=== PATIENT | male | born 1955 | race Caucasian/White ===

== ENCOUNTER → 2023-05-23 06:41 | Day surgery (SDC) | payer OTHER, SELFPAY | LOC: GI 06:41 | PROVIDERS: ATTENDING PHYSICIAN Internal Medicine Gastroenterology; FAMILY PHYSICIAN Internal Medicine | DX: Z12.11 Encounter for screening for malignant neoplasm of colon (principal); K57.30 Diverticulosis of large intestine without perforation or abscess without bleeding; K64.8 Other hemorrhoids; K62.1 Rectal polyp; D12.3 Benign neoplasm of transverse colon; D12.5 Benign neoplasm of sigmoid colon; D12.2 Benign neoplasm of ascending colon; Z86.010 Personal history of colon polyps | CPT/HCPCS: 45385; 45380; 88305 ==

== ENCOUNTER → 2023-08-30 07:44 | Outpatient (REF) | payer OTHER, SELFPAY | LOC: WOUND 07:44 | PROVIDERS: ATTENDING PHYSICIAN Surgery; FAMILY PHYSICIAN Internal Medicine | DX: I87.312 Chronic venous hypertension (idiopathic) with ulcer of left lower extremity (principal); L97.822 Non-pressure chronic ulcer of other part of left lower leg with fat layer exposed; I87.2 Venous insufficiency (chronic) (peripheral); I48.19 Other persistent atrial fibrillation; I89.0 Lymphedema, not elsewhere classified; N18.31 Chronic kidney disease, stage 3a; Z79.01 Long term (current) use of anticoagulants | CPT/HCPCS: 99204 ==

== ENCOUNTER → 2023-09-06 07:32 | Outpatient (REF) | payer OTHER, SELFPAY | LOC: WOUND 07:32 | PROVIDERS: ATTENDING PHYSICIAN Surgery; FAMILY PHYSICIAN Internal Medicine | DX: I87.312 Chronic venous hypertension (idiopathic) with ulcer of left lower extremity (principal); L97.822 Non-pressure chronic ulcer of other part of left lower leg with fat layer exposed; I87.2 Venous insufficiency (chronic) (peripheral); I48.19 Other persistent atrial fibrillation; Z79.01 Long term (current) use of anticoagulants | CPT/HCPCS: 99212 ==

== ENCOUNTER → 2023-09-14 10:32 | Outpatient (REF) | payer OTHER, SELFPAY | LOC: WOUND 10:32 | PROVIDERS: ATTENDING PHYSICIAN Surgery; FAMILY PHYSICIAN Internal Medicine | DX: I87.312 Chronic venous hypertension (idiopathic) with ulcer of left lower extremity (principal); L97.822 Non-pressure chronic ulcer of other part of left lower leg with fat layer exposed; I87.2 Venous insufficiency (chronic) (peripheral); I48.19 Other persistent atrial fibrillation; I89.0 Lymphedema, not elsewhere classified; N18.31 Chronic kidney disease, stage 3a; I73.9 Peripheral vascular disease, unspecified; Z79.01 Long term (current) use of anticoagulants | CPT/HCPCS: 99214 ==

== ENCOUNTER → 2023-09-21 13:36 | Outpatient (REF) | payer OTHER, SELFPAY | LOC: WOUND 13:36 | PROVIDERS: ATTENDING PHYSICIAN Surgery; FAMILY PHYSICIAN Internal Medicine | DX: I87.312 Chronic venous hypertension (idiopathic) with ulcer of left lower extremity (principal); L97.822 Non-pressure chronic ulcer of other part of left lower leg with fat layer exposed; I87.2 Venous insufficiency (chronic) (peripheral); I48.19 Other persistent atrial fibrillation; I89.0 Lymphedema, not elsewhere classified; N18.31 Chronic kidney disease, stage 3a; I73.9 Peripheral vascular disease, unspecified; Z79.01 Long term (current) use of anticoagulants | CPT/HCPCS: 99213 ==

== ENCOUNTER → 2023-09-28 13:03 | Outpatient (REF) | payer OTHER, SELFPAY | LOC: WOUND 13:03 | PROVIDERS: ATTENDING PHYSICIAN Surgery; FAMILY PHYSICIAN Internal Medicine | DX: I87.312 Chronic venous hypertension (idiopathic) with ulcer of left lower extremity (principal); L97.822 Non-pressure chronic ulcer of other part of left lower leg with fat layer exposed; I87.2 Venous insufficiency (chronic) (peripheral); I48.19 Other persistent atrial fibrillation; I89.0 Lymphedema, not elsewhere classified; N18.31 Chronic kidney disease, stage 3a; I73.9 Peripheral vascular disease, unspecified; Z79.01 Long term (current) use of anticoagulants | CPT/HCPCS: 11042 ==

== ENCOUNTER 2023-10-10 11:06 | Outpatient (RCR) | payer OTHER, SELFPAY | END 2023-10-10 23:59 | disposition home or self-care (01) | LOC: RPT 11:06 | PROVIDERS: ATTENDING PHYSICIAN Surgery; FAMILY PHYSICIAN Internal Medicine | DX: I89.0 Lymphedema, not elsewhere classified (principal) | CPT/HCPCS: 97163; 97530 ==

== ENCOUNTER → 2023-10-12 13:27 | Outpatient (REF) | payer OTHER, SELFPAY | LOC: WOUND 13:27 | PROVIDERS: ATTENDING PHYSICIAN Surgery; FAMILY PHYSICIAN Internal Medicine | DX: I87.312 Chronic venous hypertension (idiopathic) with ulcer of left lower extremity (principal); L97.822 Non-pressure chronic ulcer of other part of left lower leg with fat layer exposed; I87.2 Venous insufficiency (chronic) (peripheral) | CPT/HCPCS: 11042; 11045 ==

== ENCOUNTER → 2023-10-18 13:53 | Outpatient (REF) | payer OTHER, SELFPAY | LOC: WOUND 13:53 | PROVIDERS: ATTENDING PHYSICIAN Surgery; FAMILY PHYSICIAN Internal Medicine | DX: I87.312 Chronic venous hypertension (idiopathic) with ulcer of left lower extremity (principal); L97.822 Non-pressure chronic ulcer of other part of left lower leg with fat layer exposed; I87.2 Venous insufficiency (chronic) (peripheral); I73.9 Peripheral vascular disease, unspecified | CPT/HCPCS: 99213 ==

== ENCOUNTER 2023-10-18 17:32 | Inpatient (IN) | payer OTHER, SELFPAY ==
[2023-10-18 14:51] VITALS: BP 153/70
[2023-10-18 15:49] VITALS: BMI 36.2
--- NOTE | 2023-10-18 15:56 | ED.GENMED ---
History of Present Illness
General
Chief Complaint: Skin Problem
Source: patient and physician
Time Seen by Provider: 10/18/23 15:27
History of Present Illness
History of Present Illness:
68-year-old male with past medical history of atrial fibrillation, aortic stenosis, chronic lymphedema presenting to the emergency department at request of the [facility] for admission for IV antibiotics due to cellulitis of the left lower
extremity that is not improving with oral doxycycline that patient has been on over the last few days. Patient reports persistent watery and blood-tinged drainage but has been gradually worsening. He denies any fevers/chills or rigors. Notes that
he recently started seeing a lymphedema specialist but is currently not undergoing any specific treatment as he states he is a new patient to their practice. Patient denies any other associated symptoms including significant pain, weakness or
numbness, chest pain or shortness of breath or any other concerns. He denies any history for diabetes.
Past History
Past History
ED Past Medical History: Arrthythmia, Other (Aortic stenosis) and Other (Chronic lymphedema)
ED Past Surgical History: Cardiac and Orthopedic
Social History
Tobacco: Non-smoker
Alcohol: None
Drug: None
Personal:
Living: with family
Employment: Retired
Family History
Family History: Other
Review of Systems
Review of Systems
All Other Systems: ROS reviewed and negative except as documented in HPI and ROS
Phy Exam
Physical Exam
Physical Exam:
GENERAL: Alert , in no apparent distress, overweight
EYE: conjunctiva clear
NECK: Supple, no significant adenopathy.
ENT: o/p clr, mmm.
CARDIAC: Regular rate and rhythm
LUNGS: Clear breath sounds bilaterally, no acute respiratory distress, no wheezes/rales/rhonchi
NEUROLOGICAL: Alert and oriented
SKIN: Warm and dry, left lower extremity: Dressing overlying the distal lower leg. Once dressing was removed it was noted to be somewhat saturated with yellow-tinged serosanguineous drainage. There are multiple superficial abrasions with skin
hyperpigmentation and surrounding erythema. Mildly tender to palpation.
MUSCULOSKELETAL: significant bilateral lower extremity edema
PSYCH: Normal and appropriate interaction.
Scores
Heart Failure Risk
Heart Failure Risk Score: Not Applicable
Heart Score for Chest Pain Patients
STEMI patient?: Not applicable
Withdrawal Assessment of Alcohol
Withdrawal Assessment Completed?: Not applicable
Course
Orders/Labs/Results
Orders:
Orders
10/18/23 15:56
Basic Metabolic Panel Urgent
CRP [C-Reactive Protein] Urgent
Complete Blood Count/With Diff Urgent
ESR [Erythrocyte Sed Rate] Urgent
NT-proBNP Urgent
10/18/23 16:20
Vancomycin [Vancocin] 2,000 mg 0.9% Sodium Chloride 500 ml [Nss] 500 ml IV NOW
Abnormal Lab Results
10/18/23
15:56
RBC 3.99 L 10^6/uL
(4.70-6.10)
Hgb 12.0 L g/dL
(13.0-18.0)
Hct 35.8 L %
(39.0-52.0)
MPV 10.7 H fL
(7.4-10.4)
Absolute Monos (auto) 1.1 H 10^3/uL
(0.1-0.6)
Lymphocytes % 16.6 L %
(20.5-51.1)
Monocytes % 13.3 H %
(1.7-9.3)
ESR 21 H mm/hour
(0-20)
Carbon Dioxide 34 H mmol/L
(22-30)
BUN 43 H mg/dl
(9-20)
Creatinine 1.8 H mg/dL
(0.7-1.3)
Glucose 112 H mg/dl
(70-99)
C-Reactive Protein 11.60 H mg/L
(0.0-10.00)
10/18/23 15:56
10/18/23 15:56
Vital Signs
Initial and Last Documented VS:
Initial Vital Signs
Temp Pulse Resp BP Pulse Ox
97.9 F 71 16 153/70 99
10/18/23 14:51 10/18/23 14:51 10/18/23 14:51 10/18/23 14:51 10/18/23 14:51
Last Documented Vital Signs
Temp Pulse Resp BP Pulse Ox
97.9 F 71 16 153/70 99
10/18/23 14:51 10/18/23 14:51 10/18/23 14:51 10/18/23 14:51 10/18/23 14:51
MDM/Problems Addressed
Differential Diagnosis Includes:
Cellulitis, worsening lymphedema, no signs of abscess formation, peripheral vascular/peripheral arterial disease, necrotizing fasciitis much less likely given the chronicity of symptoms
MDM/Problems Addressed:
68-year-old male presenting to the emergency department for evaluation of left lower extremity edema and cellulitis that is not responding to oral antibiotics. Seen by wound care today and was recommended to come to the ER for evaluation and
treatment with IV antibiotics and ultimately admission. Patient is hemodynamically stable and in no acute distress. Lab work initiated. Vancomycin ordered for antibiotic coverage. Will notify hospitalist team pending lab work.
Chronic conditions affecting care: Other (Lymphedema)
*Pulse Oximetry
Patient hypoxic: no
*Critical Care Note
Total Time (30-74mins, 75-104mins- exclusive of procedures): Not Applicable
Data Reviewed
Review of Other/Old Records Reveals: Labs and Records
Source: patient and physician
Patient Management
Discussion with other providers: Hospitalist
Escalation/DeEscalation of care consider admission/obs:
Hospitalist team is aware and accepts for continued evaluation and treatment
ED Attending Note
-
Portions of this chart may have been created with voice recognition software.� Occasional wrong word or��sound alike� substitutions may have occurred due to the inherent limitations of voice recognition software.
Discharge Plan
Departure
Patient Disposition: Admit
Date of Disposition: 10/18/23
Time of Disposition: 16:38
Presentation/result/management discussed w/ accepting MD/DO: Hospitalist
Discharge Problem:
Cellulitis of left leg, Lymphedema, JEANIE (acute kidney injury)
Prescriptions:
No Action
metolazone 2.5 mg Tablet
2.5 mg PO SUWE
ascorbic acid (vitamin C) [Vitamin C] 1,000 mg Tablet
1,000 mg PO DAILY
torsemide 20 mg Tablet
40 mg PO DAILY
cetirizine [Zyrtec] 10 mg Tablet
20 mg PO QPM
atenolol 25 mg Tablet
25 mg PO DAILY
potassium chloride 20 mEq Tablet,Er Particles/Crystals
40 meq PO BID
magnesium oxide 500 mg magnesium Tablet
1,000 mg PO QPM
cholecalciferol (vitamin D3) [Vitamin D3] 25 mcg (1,000 unit) Tablet
25 mcg PO DAILY
Xarelto 20 mg Tablet
20 mg PO QPM
Referrals:
Brandon Colon MD [Family Provider] -
Interventions
Interventions:
*Risk Screen - Suicide Last Done: 10/18/23 14:51
*General Assessment Last Done: 10/18/23 16:53
*Neglect/Abuse Screening Last Done: 10/18/23 14:51
ED-Skin Assessment Last Done: 10/18/23 16:53
Discharge Date and Time
Print Language: VIETNAMESE
[2023-10-18 16:09] LABS: % Basophils 0.5 % (0-2); % Eosinophils 2.5 % (0-6); % Immature Granulocytes 0.3 % (0-0.5); % Lymphocytes 16.6 % (20.5-51.1); % Monocytes 13.3 % (1.7-9.3); % Neutrophils 66.8 % (42.2-75.2); Absolute Eosinophils 0.2 10^3/uL (0-0.7); Absolute Lymphocytes 1.3 10^3/uL (1.2-3.4); Absolute Monocytes 1.1 10^3/uL (0.1-0.6); Absolute Neutrophils 5.3 10^3/uL (1.4-6.5); Hematocrit 35.8 % (39.0-52.0); Mean Corp Hgb Conc. 33.5 g/dL (33.0-37.0); Mean Corpuscular Hgb 30.1 pg (27.0-31.0); Mean Corpuscular Volume 89.7 fL (80.0-94.0); Mean Platelet Volume 10.7 fL (7.4-10.4); Nucleated Red Blood Cells % 0 % (-); Platelet Count 213 10^3/uL (130-400); Red Blood Cell Count 3.99 10^6/uL (4.70-6.10); White Blood Cell Count 7.9 10^3/uL (4.8-10.8)
[2023-10-18 16:30] LABS: Blood Urea Nitrogen 43 mg/dl (9-20); Calcium 9.5 mg/dl (8.4-10.2); Carbon Dioxide 34 mmol/L (22-30); Chloride 98 mmol/L (98-107); Erythrocyte Sed Rate 21 mm/hour (0-20); Estimated Creatinine Clearance 48 ml/min; Glucose 112 mg/dl (70-99); Potassium 4.1 mmol/L (3.5-5.1); Sodium 138 mmol/L (135-145); eGFR 40.24
[2023-10-18 16:39] LABS: NT-proBNP 819 pg/ml
[2023-10-18] MEDS: VANCOCIN 540 MG IV (17:23)
--- NOTE | 2023-10-18 17:27 | HPS.HSE ---
Family Physician
-
Family Physician: Brandon Colon
Chief Complaint
-
left leg infection
History of Present Illness
68-year-old male with past medical history of persistent atrial fibrillation on Xarelto, aortic stenosis, chronic lymphedema, presenting to the emergency room at request of the wound care center for admission for IV antibiotics due to cellulitis
left lower extremity.
Patient states that he has chronic lymphedema and originally developed cellulitis of the left lower extremity 2 and half months ago for which she was hospitalized at [facility] and treated with IV antibiotics. Since then he has been following up with
wound care in the legs have been in pretty good condition, with manageable amount of serosanguineous discharge. He was also referred to lymphedema clinic but he has only started seeing them.
A few days ago pain, swelling and discharge in the left lower extremity increased significantly. He was started on doxycycline without any improvement. He denies any fevers or chills. He denies any shortness of breath worse than his baseline. He
denies any chest pain. He denies any nausea vomiting or diarrhea.
He denies smoking or alcohol use.
Medical History
Past Medical History
Past Medical History: Reports Other (persistent atrial fibrillation on Xarelto, aortic stenosis, chronic lymphedema)
Past Surgical History: Reports None
Social History
Tobacco: Non-smoker
Alcohol: None
Drug: None
Family History
Family History: Not pertinent
Allergies / Home Medications
Allergies reflects when Allergies were last updated in [facility].
Home Medications with original date entered in [facility]
Allergy/Medication List:
Allergies
Allergy/AdvReac Type Severity Reaction Status Date / Time
Penicillins Allergy hives as a Verified 10/18/23 16:24
child -
tolerated
amoxicillin
in the past
Home Medications
ascorbic acid (vitamin C) 1,000 mg tablet (Vitamin C) 1,000 mg PO DAILY 10/18/23
atenolol 25 mg tablet 25 mg PO DAILY 10/18/23
cetirizine 10 mg tablet (Zyrtec) 20 mg PO QPM 10/18/23
cholecalciferol (vitamin D3) 25 mcg (1,000 unit) tablet (Vitamin D3) 25 mcg PO DAILY 10/18/23
magnesium oxide 1,000 mg PO QPM 10/18/23
metolazone 2.5 mg tablet 2.5 mg PO SUWE 10/18/23
potassium chloride 20 mEq tablet,extended release(part/cryst) 40 meq PO BID 10/18/23
rivaroxaban 20 mg tablet (Xarelto) 20 mg PO QPM 10/18/23
torsemide 20 mg tablet 40 mg PO DAILY 10/18/23
Review of Systems
-
History Source: Patient
A 12 point ROS was completed and negative except as noted: Yes
Constitutional: Reports No Symptoms
EENT: Reports No Symptoms
Respiratory: Reports No Symptoms
Cardiac: Reports No Symptoms
Abdomen/GI: Reports No Symptoms
: Reports No Symptoms
Musculoskeletal: Reports No Symptoms
Skin: Reports See HPI and Other
Neurological: Reports No Symptoms
Endocrine: Reports No Symptoms
Hematologic/Lymphatic: Reports No Symptoms
Psych: Reports No Symptoms
Physical Exam
Vital Signs
Vital Signs
Temp Pulse Resp BP Pulse Ox
97.9 F 71 16 153/70 99
10/18/23 14:51 10/18/23 14:51 10/18/23 14:51 10/18/23 14:51 10/18/23 14:51
Physical Exam
General: Well Developed, Well Nourished and No Apparent Distress
HEENT: NormoCephalic, Moist mucous membranes and Atraumatic
Respiratory: Clear
Cardiac: S1/S2 and Regular Rhythm; No Murmur or Rub
GI: Soft, Non Tender, Non Distended and Normal Bowel Sounds; No Organomegaly
Rectal: Deferred by Provider
Musculoskeletal: No Clubbing, No Cyanosis and No Edema
Skin: Other (left leg erythema, discharge and swelling ); No Rash
Neuro: Nonfocal/grossly intact
Laboratory Results
-
10/18/23 15:56
10/18/23 15:56
Data Reviewed
-
Lab Data: Labs Reviewed by me
Old Records: Reviewed
Impression/Plan
-
IMPRESSION:
PLAN:
# Cellulitis of left lower extremity superimposed on chronic lymphedema
-Vancomycin/Zosyn
-Wound care consulted
# Acute kidney injury secondary to overdiuresis
-Likely secondary to overdiuresis with torsemide/metolazone
-Hold torsemide/metolazone being given for lymphedema until improvement in kidney function
-hold potassium
Persistent atrial fibrillation
-Continue Xarelto
-Continue atenolol
Aortic stenosis
DNR/DNI
DVT prophylaxis�Xarelto
Regular diet
[2023-10-18 21:26] VITALS: BP 120/68; BMI 37.8
--- NOTE | 2023-10-18 21:27 | PHA.VAN.IN ---
Assessment
- Assessment
Renal Function: Appears elevated from baseline (10/15/19 BASELINE SCR: 1.3)
Concomitant Antimicrobials: ZOSYN
- Previous Dosing Experience
Previous Regimen: NONE
Plan
- Plan
Initial / Loading Dose: 2GM
Maintenance Regimen: DOSING BY RANDOM LEVELS
Monitoring: RANDOM VANCOMYCIN LEVEL 10/19/23 AM
Pharmacokinetics Vancomycin I
- -
Patient Age: 68
Patient Sex: Male
Vancomycin Day #: 1
Indication: Skin And Soft Tissue (CELLULITIS OF LLE)
Requesting Provider: LOUIE
Pertinent Antimicrobial Allergies:
Allergies
Penicillins Allergy (Verified 10/18/23 16:24)
hives as a child - tolerated amoxicillin in the past
Height / Weight:
Height 5 ft 9 in
Actual Weight 115.984 kg
Pertinent Past Medical History: CHRONIC LYMPHADEMA; FAILED OUTPT TX - DOXYCYCLINE
- Vital Signs / Lab Results
Temp Pulse Resp BP Pulse Ox
98.9 F 80 16 120/68 100
10/18/23 21:26 10/18/23 21:26 10/18/23 21:26 10/18/23 21:26 10/18/23 21:26
Lab Results - Hematology
10/18/23
15:56
WBC 7.9
Lab Results - Chemistry
10/18/23
15:56
BUN 43 H
Creatinine 1.8 H
Estimated Creat Clear 48
[2023-10-18 21:29] VITALS: BP 142/88
--- NOTE | 2023-10-18 21:30 | PTCARENOTE ---
Received patient from ED via WC. Pt AAOX3. Pox: 100 RA. Family at bedside. Call yeager within reach. Plan of care ongoing.
[2023-10-18 21:36] VITALS: BMI 37.8
[2023-10-18] MEDS: FLUSH (NSS) 1 FLUSH IV (22:15)
[2023-10-18] MEDS: MAGNESIUM OXIDE 1000 MG PO (22:15)
[2023-10-18] MEDS: ZYRTEC 20 MG PO (22:15)
[2023-10-18] MEDS: ZOSYN 50 IV (22:15)
[2023-10-18] MEDS: XARELTO 15 MG PO (23:06)
[2023-10-18 23:30] VITALS: BP 110/60
[2023-10-19] MEDS: FLUSH (NSS) 1 FLUSH IV (04:42)
[2023-10-19] MEDS: ZOSYN 50 IV ×4 (04:42→22:03)
[2023-10-19] MEDS: TYLENOL 650 MG PO ×3 (04:57→23:42)
[2023-10-19 07:00] VITALS: BP 96/48
[2023-10-19 07:08] LABS: % Basophils 0.5 % (0-2); % Eosinophils 1.8 % (0-6); % Immature Granulocytes 0.4 % (0-0.5); % Lymphocytes 14.4 % (20.5-51.1); % Monocytes 10.8 % (1.7-9.3); % Neutrophils 72.1 % (42.2-75.2); Absolute Eosinophils 0.2 10^3/uL (0-0.7); Absolute Lymphocytes 1.2 10^3/uL (1.2-3.4); Absolute Monocytes 0.9 10^3/uL (0.1-0.6); Absolute Neutrophils 6.1 10^3/uL (1.4-6.5); Hematocrit 35.1 % (39.0-52.0); Hemoglobin 11.8 g/dL (13.0-18.0); Mean Corp Hgb Conc. 33.6 g/dL (33.0-37.0); Mean Corpuscular Hgb 30.7 pg (27.0-31.0); Mean Corpuscular Volume 91.4 fL (80.0-94.0); Mean Platelet Volume 10.7 fL (7.4-10.4); Nucleated Red Blood Cells % 0 % (-); Platelet Count 190 10^3/uL (130-400); Red Blood Cell Count 3.84 10^6/uL (4.70-6.10); Red Cell Dist. Width 14.2 % (11.5-14.5); White Blood Cell Count 8.5 10^3/uL (4.8-10.8)
[2023-10-19 07:23] LABS: Vancomycin Random 12.1 ug/ml
[2023-10-19 07:34] LABS: ALT (SGPT) 20 U/L (0-50); AST (SGOT) 29 U/L (17-59); Alkaline Phosphatase 71 U/L (38-126); Blood Urea Nitrogen 36 mg/dl (9-20); Calcium 9.1 mg/dl (8.4-10.2); Carbon Dioxide 30 mmol/L (22-30); Chloride 98 mmol/L (98-107); Estimated Creatinine Clearance 52 ml/min; Glucose 122 mg/dl (70-99); Potassium 3.9 mmol/L (3.5-5.1); Sodium 137 mmol/L (135-145); Total Bilirubin 2.1 mg/dl (0.2-1.3); Total Protein 6.8 g/dl (6.3-8.2)
[2023-10-19] MEDS: VITAMIN D3 (cholecalciferol) 25 MCG PO (08:40)
[2023-10-19] MEDS: VITAMIN C 1000 MG PO (08:40)
[2023-10-19] MEDS: TENORMIN 25 MG PO (08:40)
--- NOTE | 2023-10-19 08:43 | PHA.VAN.FU ---
Vancomycin Assessment / Plan
- Assessment
Renal Function: Stable
WBC's are: WNL
In the past 24 hrs, patient has been: Afebrile
Concomitant Antimicrobials: piperacillin/tazobactam
- Assessment - Therapeutic Drug Monitoring
Random Level: 12.1 - drawn ~13.5H after 2g loading dose
- Dosing Plan
Dosing by Level: Re-dose today (Vanc 1250mg)
- Monitoring Plan
Random Level: 10/19 06
- Follow Up
Pharmacy will continue to follow.
Vancomycin Follow UP
- -
Patient Age: 68
Patient Sex: Male
Vancomycin Day #: 2
Indication: Skin And Soft Tissue
Requesting Provider: Dr. Dobbins
Pertinent Antimicrobial Allergies:
Penicillins - hives as a child - tolerated amoxicillin in the past
Height / Weight:
Height 5 ft 9 in
Actual Weight 115.984 kg
Pertinent Past Medical History: BMI ~38
- Vital Signs / Lab Results
Temp Pulse Resp BP Pulse Ox
98.8 F 79 18 96/48 96
10/19/23 07:00 10/19/23 07:00 10/19/23 07:00 10/19/23 07:00 10/19/23 07:00
Lab Results - Hematology
10/18/23 10/19/23
15:56 06:55
WBC 7.9 8.5
Lab Results - Chemistry
10/18/23 10/19/23
15:56 06:55
BUN 43 H 36 H
Creatinine 1.8 H 1.7 H
Estimated Creat Clear 48 52
Albumin 4.0
Therapeutic Drug Monitoring
Random Vancomycin 12.1 ug/ml 10/19/23 06:55
--- NOTE | 2023-10-19 09:43 | WOUNDNOTE ---
[facility] RN NOTE: Reviewed chart and met with patient who was dressed and ambulating around room. He reports worsening LLE wound and follows at [facility]. Per chart review he was treated at [place] for wound recently. There are multiple open areas and much
of leg is macerated. Drainage appears to be large and serous. No odor noted. Patient states he cannot tolerate compression at this time due to pain. Patient instructed to elevate legs in bed for 30 minutes 2-3 times per day. He has plans to follow
up at [facility]. He will follow up at [facility] after discharge. Wound care provided per order. Will confirm orders and update RENAN Villagran. Will continue to follow as needed.
--- NOTE | 2023-10-19 09:46 | W.PN.HOSP.TC ---
Today's Communication/Plan
-
IV antibiotics. IV fluids.
Assessment / Plan
Assessment / Plan
Physical exam:
General: Well Developed, Well Nourished and No Apparent Distress
HEENT: Normocephalic, Atraumatic and Moist Mucous Membranes
Respiratory: Clear to Auscultation; Negative Wheezes, Rales or Rhonchi
Cardiac: Regular Rhythm and S1/S2, systolic murmur
GI: Soft, Nontender and Nondistended
Musculoskeletal: Left lower extremity erythema and edema with serous discharge. No Clubbing, No Cyanosis and bilateral edema
Neuro: Awake, Alert and Oriented
Psych: Calm
A/P:
# Cellulitis of left lower extremity superimposed on chronic lymphedema
-Vancomycin/Zosyn
-Wound care consulted
-Will streamline antibiotics down the road
-He also will require compression stockings to control edema once infection is improved
-PT eval
# Acute kidney injury secondary to overdiuresis
-Likely secondary to overdiuresis with torsemide/metolazone
-Hold torsemide/metolazone being given for lymphedema until improvement in kidney function
-hold potassium
-Start gentle hydration with IV fluids with careful attention to volume status
-Obtain ultrasound of the kidneys
Persistent atrial fibrillation
-Continue Xarelto
-Continue atenolol
-Patient tells me he follows up with cardiology as outpatient and he had a stress test last year unremarkable and also had a follow-up echocardiogram as well
-Will update echocardiogram in our system since it will impact management depending on his EF and or valvulopathy.
Aortic stenosis
DNR/DNI
DVT prophylaxis�Xarelto
Regular diet
Anticipated Discharge: > 48 hours
Subjective/Interval History
-
Date of Service: October 19, 2023
Patient has some discomfort on her left lower extremity and some discharge as well as swelling. No chest pain or shortness of breath. No fever
Objective Data
-
Labs:
Laboratory Results
10/19/23
06:55
WBC 8.5
Hgb 11.8 L
Hct 35.1 L
Plt Count 190
Sodium 137
Potassium 3.9
Chloride 98
Carbon Dioxide 30
BUN 36 H
Creatinine 1.7 H
Glucose 122 H
Calcium 9.1
Total Bilirubin 2.1 H
AST 29
ALT 20
Alkaline Phosphatase 71
Vital Signs:
Vital Signs
Temp Pulse Resp BP Pulse Ox
98.8 F 79 18 96/48 96
10/19/23 07:00 10/19/23 07:00 10/19/23 07:00 10/19/23 07:00 10/19/23 07:00
I&O
10/18/23 10/19/23 10/20/23
06:59 06:59 06:59
Intake Total 580 / 580
Balance 580 / 580
[2023-10-19] MEDS: NSS 1000 IV (10:08)
[2023-10-19] MEDS: VANCOCIN 275 MG IV (11:17)
--- NOTE | 2023-10-19 11:18 | WOUNDNOTE ---
LEFT ANTERIOR LEG
--- NOTE | 2023-10-19 11:18 | WOUNDNOTE ---
LEFT POSTERIOR LEG
[2023-10-19 14:25] VITALS: BP 111/64; PULSE 75; O2SAT 98
[2023-10-19 15:09] VITALS: BP 109/59
[2023-10-19] MEDS: ZYRTEC 20 MG PO (17:14)
[2023-10-19] MEDS: XARELTO 15 MG PO (17:14)
[2023-10-19] MEDS: MAGNESIUM OXIDE 1000 MG PO (17:14)
--- NOTE | 2023-10-19 17:47 | CON.CAR ---
Addendum entered and electronically signed by Luis Alfredo Gomez MD 10/19/23 18:14:
Patient seen and examined in collaboration with [employer]OLLEY; agree with below.
-68-year-old male status-post Ross procedure almost 30 years ago, chronic HFpEF, likely chronic severe tricuspid regurgitation, atrial fibrillation (on Xarelto), CKD, and chronic lymphedema; cardiology consulted for an abnormal echocardiogram
(severe TR).
-The patient states that he knows that he has a very leaky valve and follows up routinely with his primary Esol Instructor.
-The patient is on vancomycin and Zosyn for lower extremity cellulitis.
-The patient is on torsemide daily and metolazone twice weekly; found to have worsening renal function this admission.
-Recommend Nephrology consultation to help guide diuretic management, given renal dysfunction; patient also now developing mild hyponatremia (the patient has never been seen by Welding Machine Operator Electron Beam).
Original Note:
Consultation
Consultation Request
Date/Time Consultation Requested: 10/19/2023 17:20
Date/Time Consultation Performed: 10/19/2023 17:40
Requesting Provider: Dr. Tran
Performing Provider: ALEXX Floyd for Dr. Gomez
Reason for Consultation: HFpEF
Medical History
-
Chief Complaint: Left lower extremity swelling with drainage
History of Present Illness:
Bacilio Briggs is a 68-year-old male (known to Dr. 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
kidney disease who presented to the emergency department after referral from the wound care center with left lower extremity cellulitis. He had redness, warmth, and drainage in addition to swelling. He presented with an JEANIE. His torsemide and
metolazone were placed on hold. Admitting creatinine 1.8. Most recent creatinine for review 1.3 in 2020. He does not know his baseline creatinine. He had an echocardiogram this afternoon which showed severe tricuspid regurgitation. He is
endorsing shortness of breath.
Past Medical History
Past Medical History: Arrhythmias (Persistent atrial fibrillation [on Xarelto]), CHF (HFpEF), Valvular Disease (S/p Ross procedure) and Other (Chronic lymphedema)
Past Surgical History: Cardiac (Ross [~1994])
Social History
Tobacco: Non-Smoker
Alcohol: None
Drug: None
Family History
Family History: Reviewed & Not Pertinent
Allergies / Home Medications
Allergy/AdvReac Type Severity Reaction Status Date / Time
Penicillins Allergy hives as a Verified 10/18/23 16:24
child -
tolerated
amoxicillin
in the past
�Medication �Instructions �Recorded �Confirmed �Type
ascorbic acid (vitamin C) 1,000 mg 1,000 mg PO DAILY Supplement 10/18/23 10/18/23 History
tablet (Vitamin C)
atenolol 25 mg tablet 25 mg PO DAILY Blood Pressure 10/18/23 10/18/23 History
cetirizine 10 mg tablet (Zyrtec) 20 mg PO QPM Allergies 10/18/23 10/18/23 History
cholecalciferol (vitamin D3) 25 25 mcg PO DAILY Supplement 10/18/23 10/18/23 History
mcg (1,000 unit) tablet (Vitamin
D3)
magnesium oxide 1,000 mg PO QPM Supplement 10/18/23 10/18/23 History
metolazone 2.5 mg tablet 2.5 mg PO SUWE Fluid 10/18/23 10/18/23 History
Retention/Swelling
potassium chloride 20 mEq 40 meq PO BID Electrolyte Repletion 10/18/23 10/18/23 History
tablet,extended release(part/cryst)
rivaroxaban 20 mg tablet (Xarelto) 20 mg PO QPM Blood Clot 10/18/23 10/18/23 History
Prevention/Tx
torsemide 20 mg tablet 40 mg PO DAILY Fluid 10/18/23 10/18/23 History
Retention/Swelling
Review of Systems
-
History Source: Patient
All other systems: Negative unless noted
Constitutional: Fatigue
Respiratory: Trouble Breathing
Cardiac: No Symptoms
Abdomen/GI: No Symptoms
: No Symptoms
Musculoskeletal: Edema
Skin: Other (Wound)
Neurological: No Symptoms
Endocrine: No Symptoms
Hematologic/Lymphatic: No Symptoms
Physical Exam
Vital Signs
Temp Pulse Resp BP Pulse Ox
98 F 75 24 109/59 100
10/19/23 15:09 10/19/23 15:09 10/19/23 15:09 10/19/23 15:09 10/19/23 15:09
Lab Results
10/19/23 06:55
Jan-A-Bjrsgnahcju Pept 819 pg/ml 10/18/23 15:56
Physical Exam
General: Well Developed, Well Nourished, No Apparent Distress and Comfortable
HEENT: Normocephalic, Anicteric and Moist Mucous Membranes
Respiratory: Clear and Non Labored Respirations
Cardiac: S1/S2, Irregular Rhythm and Peripheral Edema (Significant lower extremity edema [element of lymphedema])
Breast: Deferred by me
GI: Soft, Non Tender, Non Distended and Normal Bowel Sounds
Rectal: Deferred by Provider
Genito-urinary: No Costovertebral Tender
Musculoskeletal: No Clubbing and No Cyanosis
Skin: Warm, Dry and Other (Draining left lower extremity wound)
Neuro: AO x 3
Hematologic/Lymphatic: No Lymphadenopathy
Psych: Calm
Impression / Plan
-
HFpEF, acute on chronic
-He endorses orthopnea and echocardiogram consistent with RV pressure and volume overload along with a dilated IVC that does not collapse
-His proBNP has increased since admission
-He would benefit from diuresis, cautious, given his JEANIE consider Nephrology consultation
-Dry weight unknown
-Trend daily weight, I/O, and BMP with diuresis
-I would hold MRA and SGLT2 given his JEANIE
Tricuspid regurgitation, severe, chronicity unknown
Mild to moderate, eccentric mitral regurgitation
Hyponatremia, likely hypervolemic
JEANIE on CKD (I suspect)
-Baseline kidney disease unknown but GFR less than 60 several years ago
-His diuretics are on hold
-He is currently receiving intravenous vancomycin
Status post Ross procedure
-Peak/mean gradients across the pulmonic valve are 18/7 mmHg. Mild pulmonic regurgitation.
-Peak/mean gradients across the aortic valve are 14/7 mmHg. Mild to moderate aortic regurgitation.
Persistent atrial fibrillation
-Prior PVI was unsuccessful
-Rate controlled to auscultation
-Oral Anticoagulation: Rivaroxaban 15 mg daily (dose adjusted due to renal function)
-[id number]: Score at least 2 (Heart failure, age 65-74)
Left lower extremity cellulitis superimposed on chronic lymphedema, per primary
Dilated ascending aorta, 4.2 cm
Obesity, BMI 37.8, he would benefit from weight loss
--- NOTE | 2023-10-19 17:52 | CM ---
met with patient at bedside.he lives with his in house with 1 issa,his bed and bath is on first floor,he amb i and is i with his adl.dr chun mcpherson and he uses [facility] in [place].he has used [facility] home care in past and has never been to
rehab.he attends hospital wound care.patient signed imm letter.
pmh:as,chronic lymphedema,reyna,afib,afib on xarelto
patient adm with cellulitis of lle,on iv vanco,iv zosyn,compession stockings,.plan home with hc vs home with iv abx .
[2023-10-19 17:53] LABS: Blood Urea Nitrogen 41 mg/dl (9-20); Calcium 9.1 mg/dl (8.4-10.2); Carbon Dioxide 29 mmol/L (22-30); Chloride 97 mmol/L (98-107); Estimated Creatinine Clearance 52 ml/min; Glucose 123 mg/dl (70-99); Potassium 4.2 mmol/L (3.5-5.1); Sodium 133 mmol/L (135-145)
[2023-10-19 17:55] LABS: NT-proBNP 1140 pg/ml
[2023-10-19 23:38] VITALS: BP 112/59
[2023-10-20] MEDS: ZOSYN 50 IV ×4 (04:25→21:58)
[2023-10-20 06:00] VITALS: BMI 37.9
[2023-10-20 07:31] LABS: Vancomycin Random 12.6 ug/ml
[2023-10-20 07:34] LABS: % Basophils 0.8 % (0-2); % Eosinophils 3.1 % (0-6); % Immature Granulocytes 0.2 % (0-0.5); % Lymphocytes 27.2 % (20.5-51.1); % Monocytes 14.5 % (1.7-9.3); % Neutrophils 54.2 % (42.2-75.2); Absolute Basophils 0.1 10^3/uL (0-0.2); Absolute Eosinophils 0.2 10^3/uL (0-0.7); Absolute Lymphocytes 1.8 10^3/uL (1.2-3.4); Absolute Neutrophils 3.6 10^3/uL (1.4-6.5); Hematocrit 35.2 % (39.0-52.0); Hemoglobin 11.7 g/dL (13.0-18.0); Mean Corp Hgb Conc. 33.2 g/dL (33.0-37.0); Mean Corpuscular Hgb 29.8 pg (27.0-31.0); Mean Corpuscular Volume 89.6 fL (80.0-94.0); Mean Platelet Volume 11.1 fL (7.4-10.4); Nucleated Red Blood Cells % 0 % (-); Platelet Count 195 10^3/uL (130-400); Red Blood Cell Count 3.93 10^6/uL (4.70-6.10); White Blood Cell Count 6.5 10^3/uL (4.8-10.8)
[2023-10-20 07:38] LABS: Blood Urea Nitrogen 37 mg/dl (9-20); Calcium 9.1 mg/dl (8.4-10.2); Carbon Dioxide 30 mmol/L (22-30); Chloride 95 mmol/L (98-107); Estimated Creatinine Clearance 49 ml/min; Glucose 93 mg/dl (70-99); Potassium 3.5 mmol/L (3.5-5.1); Sodium 134 mmol/L (135-145); eGFR 40.24
--- NOTE | 2023-10-20 07:52 | PHA.VAN.FU ---
Vancomycin Assessment / Plan
- Assessment
Renal Function: SCR Increasing (1.7>1.8)
WBC's are: Trending Down (8.5>4.9)
Concomitant Antimicrobials: Piperacillin-tazobactam
- Assessment - Therapeutic Drug Monitoring
Random Level: 12.6 drawn ~19 hrs after vancomycin 1250mg dose given
- Dosing Plan
Dosing by Level: Re-dose today (Vancomycin 1250mg x 1 dose)
- Monitoring Plan
Random Level: Ordered for 10/21/23 at 06:00
- Follow Up
Pharmacy will continue to follow.
Vancomycin Follow UP
- -
Patient Age: 68
Patient Sex: Male
Vancomycin Day #: 3
Indication: Skin And Soft Tissue
Requesting Provider: Dr. Dobbins
Pertinent Antimicrobial Allergies:
Penicillins - hives as a child - tolerated amoxicillin in the past
Height / Weight:
Height 5 ft 9 in
Actual Weight 116.437 kg
IBW in k.7
Adjusted BW in k
Pertinent Past Medical History: BMI ~38
- Vital Signs / Lab Results
Temp Pulse Resp BP Pulse Ox
99.4 F 73 20 112/59 100
10/19/23 23:38 10/19/23 23:38 10/19/23 23:38 10/19/23 23:38 10/19/23 23:38
Lab Results - Hematology
10/18/23 10/19/23 10/20/23
15:56 06:55 05:48
WBC 7.9 8.5 6.5
Lab Results - Chemistry
10/18/23 10/19/23 10/19/23
15:56 06:55 17:27
BUN 43 H 36 H 41 H
Creatinine 1.8 H 1.7 H 1.7 H
Estimated Creat Clear 48 52 52
Albumin 4.0
10/20/23
05:48
BUN 37 H
Creatinine 1.8 H
Estimated Creat Clear 49
Albumin
Therapeutic Drug Monitoring
Random Vancomycin 12.6 ug/ml 10/20/23 05:48
[2023-10-20 08:12] VITALS: BP 137/76
[2023-10-20] MEDS: VITAMIN D3 (cholecalciferol) 25 MCG PO (08:25)
[2023-10-20] MEDS: TENORMIN 25 MG PO (08:25)
[2023-10-20] MEDS: VITAMIN C 1000 MG PO (08:26)
[2023-10-20] MEDS: LASIX 40 MG IV (08:26)
--- NOTE | 2023-10-20 08:44 | W.PN.HOSP.TC ---
Today's Communication/Plan
-
IV antibiotics. IV Lasix.
Assessment / Plan
Assessment / Plan
Physical exam:
General: Well Developed, Well Nourished and No Apparent Distress
HEENT: Normocephalic, Atraumatic and Moist Mucous Membranes
Respiratory: Clear to Auscultation; Negative Wheezes, Rales or Rhonchi
Cardiac: Regular Rhythm and S1/S2, systolic murmur
GI: Soft, Nontender and Nondistended
Musculoskeletal: Left lower extremity erythema and edema with serous discharge. No Clubbing, No Cyanosis and bilateral edema
Neuro: Awake, Alert and Oriented
Psych: Calm
A/P:
# Cellulitis of left lower extremity superimposed on chronic lymphedema
-Vancomycin/Zosyn
-Wound care consulted
-Will streamline antibiotics down the road
-He also will require compression stockings to control edema once infection is improved
-PT eval
# Acute kidney injury felt to be related to cardiorenal syndrome
-Diuretics have been on hold but will restart today.
-Ultrasound of the kidneys pending
-Cardiology recommends nephrology consult--> consulted nephrology today.
#Acute on chronic diastolic congestive heart failure
IV diuretics, Lasix 40 mg twice a day
BNP upon admission
Monitor strict I/O
Monitor daily weight
Monitor renal function and electrolytes
Reviewed latest echocardiogram on our system
Continue guideline-directed medical therapy for heart failure (GDMT)
Fluid restriction
Salt restriction
Heart failure education
Follow up clinical response
Persistent atrial fibrillation
-Continue Xarelto
-Continue atenolol
-Echo updated
Mitral regurgitation/aortic regurgitation/pulmonic regurgitation/dilated ascending aorta
Echocardiogram obtained
DNR/DNI
DVT prophylaxis�Xarelto
Regular diet
Total time spent on today's encounter was 52 minutes which included time spent in counseling the patient/family regarding diagnosis and treatment plan as listed above, goals of care, and symptom management. Case was discussed with nursing staff,
specialists, and care coordinators/case management. All labs and imaging personally reviewed by me. Remainder the time spent in detailed review of previous records, lab data, imaging, and other medical provider documentation.
Anticipated Discharge: > 48 hours
Subjective/Interval History
-
Date of Service: October 20, 2023
Patient with some shortness of breath. His peripheral edema is worse and he feels that he cannot fit his pants and socks. Afebrile
Objective Data
-
Labs:
Laboratory Results
10/20/23
05:48
WBC 6.5
Hgb 11.7 L
Hct 35.2 L
Plt Count 195
Sodium 134 L
Potassium 3.5
Chloride 95 L
Carbon Dioxide 30
BUN 37 H
Creatinine 1.8 H
Glucose 93
Calcium 9.1
Vital Signs:
Vital Signs
Temp Pulse Resp BP Pulse Ox
98 F 77 18 137/76 100
10/20/23 08:12 10/20/23 08:25 10/20/23 08:12 10/20/23 08:25 10/20/23 08:12
I&O
10/19/23 10/20/23 10/21/23
06:59 06:59 06:59
Intake Total 580 / 580 1180 / 1180
Balance 580 / 580 1180 / 1180
[2023-10-20] MEDS: VANCOCIN 275 MG IV (10:22)
--- NOTE | 2023-10-20 13:19 | W.PN.CD ---
Today's Communication / Plan
-
-Weight has been going up.
-Will increase Lasix dose to 80 mg IV BID.
-Diuretics were on hold, given worsening renal dysfunction; per Nephrology, continue with diuresis.
Impression / Plan
-
HFpEF, acute on chronic
-Weight has been going up.
-Will increase Lasix dose to 80 mg IV BID.
-Dry weight unknown
-Continue to trend daily weight, I/O, and BMP with diuresis
Severe tricuspid regurgitation (likely chronic):
-Increasing diuretic as above.
Mild to moderate, eccentric mitral regurgitation
Hyponatremia, likely hypervolemic
JEANIE on CKD (I suspect)
-Baseline kidney disease unknown but GFR less than 60 several years ago
-Diuretics were on hold, given worsening renal dysfunction; per Nephrology, continue with diuresis.
-Nephrology consulted.
-He is currently receiving intravenous vancomycin
Status post Ross procedure
-Peak/mean gradients across the pulmonic valve are 18/7 mmHg. Mild pulmonic regurgitation.
-Peak/mean gradients across the aortic valve are 14/7 mmHg. Mild to moderate aortic regurgitation.
Persistent atrial fibrillation
-Prior PVI was unsuccessful
-Rate controlled to auscultation
-Oral Anticoagulation: Rivaroxaban 15 mg daily (dose adjusted due to renal function)
-[id number]: Score at least 2 (Heart failure, age 65-74)
Left lower extremity cellulitis superimposed on chronic lymphedema, per primary
Dilated ascending aorta, 4.2 cm
Obesity, BMI 37.8, he would benefit from weight loss
Physical Exam
Vital Signs/Labs
Vital Signs
Temp Pulse Resp BP Pulse Ox
98 F 77 18 137/76 100
10/20/23 08:12 10/20/23 08:25 10/20/23 08:12 10/20/23 08:25 10/20/23 08:12
10/19/23 10/20/23 10/21/23
06:59 06:59 06:59
Actual Weight 115.984 kg 116.437 kg
10/20/23 05:48
10/20/23 05:48
10/18/23 10/19/23
15:56 17:27
Yci-A-Peubdwiejxn Pept 819 1140
Physical Exam
Constitutional: No acute distress and Comfortable
EENT: Anicteric
Cardiovascular: Rhythm/rate is irregular, Pedal edema present (4+), Systolic murmur present (4/6) and S1S2 is normal
Respiratory: Respiratory effort normal and Lungs clear to auscul.
GI: Soft
Neuro/Psych: AO x 3
Other: Skin (Chronic lower extremity edema with venous stasis changes)
Data Reviewed
-
Date of Service: October 20, 2023
Echo: Tracing Personally Visualized and interpreted (Severe TR)
Medical Tests (PFT, Pathology etc): Discussed with Physician (Primary Hospitalist) and Discussed with Patient
Labs: Labs Reviewed by me
--- NOTE | 2023-10-20 13:37 | W.CON.NEPH ---
Consultation
-
Date/Time Consultation Requested: 10/20/2023 7:30 AM
Date/Time Consultation Performed: 10/20/2023 1:30 PM
Requesting Provider: Dr. Delaney
Performing Provider: Dr. Muller
Reason for Consultation: Chronic kidney disease
Medical History
-
Chief Complaint: Chronic kidney disease
History of Present Illness:
The patient is a 68-year-old with a past medical history of atrial fibrillation chronically rate controlled on atenolol and anticoagulated. He also has chronic edema and apparently was hospitalized at [facility] this past spring for left lower leg
cellulitis for which she received IV antibiotics and was eventually discharged on doxycycline. He has chronic edema for which she is maintained on both metolazone and torsemide. He also has a component of chronic kidney disease although was
unaware of his baseline creatinine which was last noted to be 1.3 on 10/15/2019. He previously underwent Ross procedure approximately 30 years ago but also has a history of severe TR. he was sent by the wound center for admission for IV antibiotics
due to worsening of his left lower leg cellulitis. On presentation his creatinine was 1.8 and nephrology was asked to see the patient.
Past Medical History
(persistent atrial fibrillation on Xarelto, aortic stenosis, chronic lymphedema)
CKD
Social History
Tobacco: Non-Smoker
Alcohol: None
Family History
no CKD
Allergies / Home Medications
Allergy/AdvReac Type Severity Reaction Status Date / Time
Penicillins Allergy hives as a Verified 10/20/23 07:47
child -
tolerated
amoxicillin
in the past
�Medication �Instructions �Recorded �Confirmed �Type
ascorbic acid (vitamin C) 1,000 mg 1,000 mg PO DAILY Supplement 10/18/23 10/18/23 History
tablet (Vitamin C)
atenolol 25 mg tablet 25 mg PO DAILY Blood Pressure 10/18/23 10/18/23 History
cetirizine 10 mg tablet (Zyrtec) 20 mg PO QPM Allergies 10/18/23 10/18/23 History
cholecalciferol (vitamin D3) 25 25 mcg PO DAILY Supplement 10/18/23 10/18/23 History
mcg (1,000 unit) tablet (Vitamin
D3)
magnesium oxide 1,000 mg PO QPM Supplement 10/18/23 10/18/23 History
metolazone 2.5 mg tablet 2.5 mg PO SUWE Fluid 10/18/23 10/18/23 History
Retention/Swelling
potassium chloride 20 mEq 40 meq PO BID Electrolyte Repletion 10/18/23 10/18/23 History
tablet,extended release(part/cryst)
rivaroxaban 20 mg tablet (Xarelto) 20 mg PO QPM Blood Clot 10/18/23 10/18/23 History
Prevention/Tx
torsemide 20 mg tablet 40 mg PO DAILY Fluid 10/18/23 10/18/23 History
Retention/Swelling
Review of Systems
-
History Source: Patient
All other systems: Negative unless noted
Musculoskeletal: Edema (Edema of left lower extremity)
Skin: Other (Left lower leg extremity cellulitis in the)
Physical Exam
Vital Signs
Vital Signs
Temp Pulse Resp BP Pulse Ox
98 F 77 18 137/76 100
10/20/23 08:12 10/20/23 08:25 10/20/23 08:12 10/20/23 08:25 10/20/23 08:12
Lab Results
10/20/23 05:48
10/20/23 05:48
WBC 6.5 10^3/uL (4.8-10.8) 10/20/23 05:48
RBC 3.93 10^6/uL (4.70-6.10) L 10/20/23 05:48
Hgb 11.7 g/dL (13.0-18.0) L 10/20/23 05:48
Hct 35.2 % (39.0-52.0) L 10/20/23 05:48
Plt Count 195 10^3/uL (130-400) 10/20/23 05:48
Sodium 134 mmol/L (135-145) L 10/20/23 05:48
Potassium 3.5 mmol/L (3.5-5.1) 10/20/23 05:48
Chloride 95 mmol/L (98-107) L 10/20/23 05:48
Carbon Dioxide 30 mmol/L (22-30) 10/20/23 05:48
BUN 37 mg/dl (9-20) H 10/20/23 05:48
Creatinine 1.8 mg/dL (0.7-1.3) H 10/20/23 05:48
eGFR 40.24 10/20/23 05:48
Glucose 93 mg/dl (70-99) 10/20/23 05:48
Calcium 9.1 mg/dl (8.4-10.2) 10/20/23 05:48
Dgo-U-Tvsujkrkmtk Pept 1140 pg/ml 10/19/23 17:27
Albumin 4.0 g/dl (3.5-5.0) 10/19/23 06:55
Physical Exam
General: AOx3, Nontoxic , NAD
HEENT: PERRL, EOMI, Anicteric, obese, conjunctivae Clear, Ear/Nose Intact, Hearing Normal, Oropharynx Clear/Moist, Dentition Intact, Facial Symmetry, Neck Supple, Neck: Trachea Midline, No JVD and No Thyromegaly, no Bruits
Respiratory: Clear to auscultation bilaterally with normal lung exersion but decreased breath sounds to bases
Cardiac: S1/S2 and Regular Rate/Rhythm with systolic ejection murmur at both right and left sternal border
Breast: Deferred by me
Abdomen: Soft, Nontender, Nondistended, Normal Bowel Sounds and No Hepatosplenomegaly
Rectal: Deferred by Provider
Genito-urinary: No Costovertebral Tenderness
Extremities: No Clubbing, No Cyanosis and plus 3 pitting Edema right greater then left, left leg wound dressed
Skin: No Rash or open lesions
Neuro: Nonfocal/Grossly Intact, CN II-XII (Intact) and Strength (Musculoskeletal exam 5 out of 5 both upper and lower extremities)
Hematologic/Lymphatic: No Cervical Lymphadenopathy, No Submandibular Lymphadenopathy and No Supraclavicular Lymphadenopathy
Psych: Mood/afflect pleasant, Insight/judgement good and Appropriate
Vascular: plus 1 pedal and radial pulses
Data Reviewed
-
Ultrasound: Report Reviewed by me (Renal ultrasound report reviewed showed bilateral large cysts but no evidence of hydronephrosis cortical echogenicity within normal limit)
Medical Tests (Nuc Med, Echo etc): Other (EKG report notes atrial fibrillation with competing junctional pacemaker at 73 bpm per report)
Labs: Labs Reviewed by me (BMP CBC)
Old Records: Reviewed (Reviewed previous creatinine from date seven 3)
Assessment/Plan
-
Impression:
CKD (1.8)
Renal cysts
Cellulitis of left lower extremity
Chronic lymphedema
Atrial fibrillation
Aortic stenosis
Severe TR history of Ross procedure
Suspected congestive heart failure
Plan:
-will obtain urine eosinophils to assess for possible drug-induced interstitial nephritis with antibiotic use for lower extremity cellulitis
-Kidney ultrasound reviewed and without acute or obstructive findings notable for renal cystic disease
-Proceed forward with IV diuresis given gross volume overload (80mg IV BID)
-Obtain urine studies which will include fractional secretion of sodium and urinalysis urine protein to urine creatinine ratio
-Adjust Zosyn for GFR of less than 40
-Follow vancomycin level
-Follow accurate I's and O's
[2023-10-20 15:41] LABS: Glycohemoglobin (HgbA1c) 6.3 % (4.0-5.6)
[2023-10-20 16:45] LABS: Urine Albumin Negative (Neg - Trace); Urine Bilirubin Negative (Negative); Urine Character Clear (Clear); Urine Color Yellow; Urine Glucose Negative (Negative); Urine Ketone Negative (Negative); Urine Leukocyte Negative (Negative); Urine Nitrite Negative (Negative); Urine Occult Blood Negative (Negative); Urine Specific Gravity 1.015 (<1.030); Urine Urobilinogen Negative (Neg - 1+)
[2023-10-20] MEDS: LASIX 80 MG IV (16:45)
[2023-10-20] MEDS: MAGNESIUM OXIDE 1000 MG PO (16:45)
[2023-10-20] MEDS: XARELTO 15 MG PO (16:45)
[2023-10-20] MEDS: ZYRTEC 20 MG PO (16:45)
[2023-10-20 16:47] VITALS: BP 115/70
[2023-10-20] MEDS: TYLENOL 650 MG PO ×2 (16:47→22:56)
[2023-10-20 17:00] LABS: Protein/creatinine Ratio 0.1; Urine Protein 10 mg/dl
[2023-10-20 23:22] VITALS: BP 107/71
[2023-10-21] MEDS: ZOSYN 50 IV (04:22)
[2023-10-21 06:00] VITALS: BMI 37.4
[2023-10-21 07:35] VITALS: BP 137/76
[2023-10-21] MEDS: VITAMIN C 1000 MG PO (07:56)
[2023-10-21] MEDS: VITAMIN D3 (cholecalciferol) 25 MCG PO (07:56)
[2023-10-21] MEDS: TENORMIN 25 MG PO (07:56)
[2023-10-21] MEDS: FLUSH (NSS) 1 FLUSH IV ×4 (07:57→17:12)
[2023-10-21] MEDS: LASIX 80 MG IV ×2 (07:57→16:32)
[2023-10-21 09:10] LABS: Blood Urea Nitrogen 38 mg/dl (9-20); Calcium 9.1 mg/dl (8.4-10.2); Carbon Dioxide 33 mmol/L (22-30); Chloride 93 mmol/L (98-107); Estimated Creatinine Clearance 44 ml/min; Glucose 82 mg/dl (70-99); Magnesium 2.5 mg/dl (1.6-2.3); Sodium 136 mmol/L (135-145); eGFR 35.46
--- NOTE | 2023-10-21 09:16 | W.PN.HOSP.TC ---
Today's Communication/Plan
-
IV Lasix. IV antibiotics.
Assessment / Plan
Assessment / Plan
Physical exam:
General: Acute and chronically ill
HEENT: Normocephalic, Atraumatic and Moist Mucous Membranes
Respiratory: Clear to Auscultation; Negative Wheezes, Rales or Rhonchi
Cardiac: Irregular Rhythm and S1/S2, systolic murmur
GI: Soft, Nontender and Nondistended
Musculoskeletal: Left lower extremity erythema and edema with serous discharge. No Clubbing, No Cyanosis and bilateral edema
Neuro: Awake, Alert and Oriented
Psych: Calm
A/P:
# Cellulitis of left lower extremity superimposed on chronic lymphedema
-Vancomycin/Zosyn change to IV cefazolin today since it will cover strep cellulitis and also will be less nephrotoxic.
-Will do ultrasound of the left lower extremity today to rule out VTE
-WBC 11.2-->7.9-->8.5-->6.5. Overall leukocytosis trending down appropriately.
-Wound care consulted
-Compression stockings to control edema/lymphedema
-PT OT eval
# Acute kidney injury felt to be related to cardiorenal syndrome. There might be an element of CKD as well
-Creatinine 2.0 today but suspect some element of cardiorenal syndrome
-Continue to avoid nephrotoxic
-Continue to monitor renal function
-Ultrasound of the kidneys reviewed and no obstruction or acute significant abnormalities except for cysts that can be follow-up as outpatient and no mass.
-Cardiology recommends nephrology consult
-Nephrology consult appreciated and they will check urine studies. Nephrology okay with current diuresis.
#Acute on chronic diastolic congestive heart failure, likely valvulopathy related
IV diuretics, Lasix 80 mg twice a day
He is on torsemide and metolazone as outpatient and has been on hold prior to admission.
BNP 1140 upon admission
Monitor strict I/O
Monitor daily weight
Monitor renal function and electrolytes
Follows up with cardiology at [facility] as outpatient, Dr. Hernandez
Reviewed latest echocardiogram on our system
Continue guideline-directed medical therapy for heart failure (GDMT)
Fluid restriction
Salt restriction
Heart failure education
Follow up clinical response
#Hypokalemia
Replete potassium today
Will restart back his oral standing doses of potassium and monitor closely
Magnesium levels 2.5 today so no need for replacement
#Hyponatremia
Likely hypervolemic hyponatremia
Sodium up to 136 with diuresis from 133 upon admission
Continue to monitor sodium
#Anemia
No signs of active bleeding
Hemoglobin 11.7 stable
Continue to monitor hemoglobin
#Persistent atrial fibrillation
-Continue anticoagulant, Xarelto
-Continue rate control, atenolol
-Echo updated
-History of PVI and unsuccessful in the past
#Mitral regurgitation/tricuspid regurgitation/aortic regurgitation/pulmonic regurgitation/dilated ascending aorta
Echocardiogram obtained
Status post Ross procedure in the past
#Morbid obesity
Weight loss modification warranted as outpatient
DNR/DNI
DVT prophylaxis�Xarelto
Regular diet
Total time spent on today's encounter was 52 minutes which included time spent in counseling the patient/family regarding diagnosis and treatment plan as listed above, goals of care, and symptom management. Case was discussed with nursing staff,
specialists, and care coordinators/case management. All labs and imaging personally reviewed by me. Remainder the time spent in detailed review of previous records, lab data, imaging, and other medical provider documentation.
Anticipated Discharge: > 48 hours
Subjective/Interval History
-
Date of Service: October 21, 2023
Patient edema still significant. Less shortness of breath. No chest pain. Patient also still have tenderness in his leg. Afebrile.
Objective Data
-
Labs:
Laboratory Results
10/21/23
05:24
Sodium 136
Potassium 3.0 L
Chloride 93 L
Carbon Dioxide 33 H
BUN 38 H
Creatinine 2.0 H
Glucose 82
Calcium 9.1
Vital Signs:
Vital Signs
Temp Pulse Resp BP Pulse Ox
97.8 F 76 18 137/67 96
10/21/23 07:35 10/21/23 07:57 10/21/23 07:35 10/21/23 07:57 10/21/23 07:56
I&O
10/20/23 10/21/23 10/22/23
06:59 06:59 06:59
Intake Total 1180 / 1180 5 / 191
Output Total 700 / 700
Balance 1180 / 1180 1215 / 1215
[2023-10-21 09:20] LABS: Vancomycin Random 14.8 ug/ml
[2023-10-21] MEDS: KCL 40 MEQ PO ×2 (09:53→19:54)
[2023-10-21] MEDS: TYLENOL 650 MG PO ×2 (09:55→23:54)
[2023-10-21 10:20] VITALS: BMI 37.4
--- NOTE | 2023-10-21 10:24 | CM ---
Addendum entered by Danika Schreiber 10/21/23 13:27:
Consult received for Advance Directive. Several attempts were made to discuss with Bacilio, however he was on his cell phone on numerous visits. He overheard me speaking with his roommate regarding and AD and on my way by he asked that I meet with
him tomorrow, as he is interested in an advance directive.
CM to follow in AM to review Advance Directive.
Plan remains for discharge to home; will review home care vs. d/c with no services when pt is available to discuss.
Original Note:
CM continues to follow for discharge to home, likely with resumption of [facility] services.
Plan: Discharge to home with home care vs. home with no needs.
[2023-10-21] MEDS: ANCEF 5 IV ×2 (10:55→17:12)
--- NOTE | 2023-10-21 11:11 | W.PN.CD ---
Today's Communication / Plan
-
-Continue Lasix 80 mg IV BID; Nephrology following.
-Continue to trend daily weight, I/O, and BMP with diuresis.
Impression / Plan
-
HFpEF, acute on chronic
-Continue Lasix 80 mg IV BID; Nephrology following.
-Dry weight unknown
-Continue to trend daily weight, I/O, and BMP with diuresis.
Severe tricuspid regurgitation (likely chronic):
-Diuretic management as above.
Mild to moderate, eccentric mitral regurgitation
Hyponatremia, likely hypervolemic
JEANIE on CKD (I suspect)
-Nephrology consulted.
-He is currently receiving intravenous vancomycin
Status post Ross procedure
-Peak/mean gradients across the pulmonic valve are 18/7 mmHg. Mild pulmonic regurgitation.
-Peak/mean gradients across the aortic valve are 14/7 mmHg. Mild to moderate aortic regurgitation.
Persistent atrial fibrillation
-Prior PVI was unsuccessful
-Rate controlled to auscultation
-Oral Anticoagulation: Rivaroxaban 15 mg daily (dose adjusted due to renal function)
-[id number]: Score at least 2 (Heart failure, age 65-74)
Left lower extremity cellulitis superimposed on chronic lymphedema, per primary
Dilated ascending aorta, 4.2 cm
Obesity, BMI 37.8, he would benefit from weight loss
Physical Exam
Vital Signs/Labs
Vital Signs
Temp Pulse Resp BP Pulse Ox
97.8 F 76 18 137/67 96
10/21/23 07:35 10/21/23 07:57 10/21/23 07:35 10/21/23 07:57 10/21/23 07:56
10/20/23 10/21/23 10/22/23
06:59 06:59 06:59
Actual Weight 116.437 kg 114.787 kg
10/20/23 05:48
10/21/23 05:24
Magnesium 2.5 mg/dl (1.6-2.3) H 10/21/23 05:24
10/18/23 10/19/23
15:56 17:27
Asu-E-Jajwzhyipds Pept 819 1140
Physical Exam
Constitutional: No acute distress and Comfortable
EENT: Anicteric
Cardiovascular: Rhythm/rate is irregular, Pedal edema present (4+ bilateral pitting), Systolic murmur present (4/6) and S1S2 is normal
Respiratory: Respiratory effort normal and Lungs clear to auscul.
GI: Soft
Neuro/Psych: AO x 3
Data Reviewed
-
Date of Service: October 21, 2023
Labs: Labs Reviewed by me
--- NOTE | 2023-10-21 12:41 | W.PN.NEPH.PH ---
Today's Communication / Plan
-
Maintain diuretic
Replete potassium
Assessment/Plan
-
Impression:
CKD (1.8)
Renal cysts
Cellulitis of left lower extremity
Chronic lymphedema
Atrial fibrillation
Aortic stenosis
Severe TR history of Ross procedure
Suspected congestive heart failure
Plan:
- obtained urine eosinophils to assess for possible drug-induced interstitial nephritis with antibiotic use for lower extremity cellulitis -negative
-Kidney ultrasound reviewed and without acute or obstructive findings notable for renal cystic disease
-Proceed forward with IV diuresis given gross volume overload (80mg IV BID), increasing urine output creatinine up 2
-Replete potassium
-Obtained urine studies which will include fractional secretion of sodium and urinalysis urine protein to urine creatinine ratio 100mg (UA bland)
-I do not think the patient's elevated creatinine is due to an underlying infectious glomerulonephritis
-Adjust Zosyn for GFR of less than 40
-Follow vancomycin level
-Follow accurate I's and O's
-
-
Date of Service: October 21, 2023
CC / HPI / ROS
-
Chief Complaint:
Chronic kidney disease
History of Present Illness:
Creatinine up to 2
Hemodynamically stable
Review of Systems:
Grossly nonoliguric
Weights down
Profound edema with left lower extremity cellulitis
Labs
-
Labs:
WBC 6.5 10^3/uL (4.8-10.8) 10/20/23 05:48
RBC 3.93 10^6/uL (4.70-6.10) L 10/20/23 05:48
Hgb 11.7 g/dL (13.0-18.0) L 10/20/23 05:48
Hct 35.2 % (39.0-52.0) L 10/20/23 05:48
Plt Count 195 10^3/uL (130-400) 10/20/23 05:48
Sodium 136 mmol/L (135-145) 10/21/23 05:24
Potassium 3.0 mmol/L (3.5-5.1) L 10/21/23 05:24
Chloride 93 mmol/L (98-107) L 10/21/23 05:24
Carbon Dioxide 33 mmol/L (22-30) H 10/21/23 05:24
BUN 38 mg/dl (9-20) H 10/21/23 05:24
Creatinine 2.0 mg/dL (0.7-1.3) H 10/21/23 05:24
eGFR 35.46 10/21/23 05:24
Glucose 82 mg/dl (70-99) 10/21/23 05:24
Calcium 9.1 mg/dl (8.4-10.2) 10/21/23 05:24
Mjm-J-Cztlrlcoesg Pept 1140 pg/ml 10/19/23 17:27
Albumin 4.0 g/dl (3.5-5.0) 10/19/23 06:55
Physical Exam
-
Vital Signs:
Vital Signs
Temp Pulse Resp BP Pulse Ox
97.8 F 76 18 137/67 96
10/21/23 07:35 10/21/23 07:57 10/21/23 07:35 10/21/23 07:57 10/21/23 07:56
Cardiovascular:: Regular rate and rhythm (4 out of 6 systolic ejection murmur)
Respiratory:: Bilateral: CTA
Lung Excursion:: Normal
Abdomen:: Nontender
Bowel Sounds:: Normal
Extremity Edema:: +3: Bilateral:
Leary Catheter: No
[2023-10-21 13:59] LABS: Anti Streptolysin Negative (Negative)
[2023-10-21 15:25] VITALS: BP 137/65
--- NOTE | 2023-10-21 16:02 | PTCARENOTE ---
Pt AAO x3, MONTES; OOB in chair for shift; ambulates to BR; amaya well. VSS. Pt has +3 edema BLE; does not keep legs elevated when OOB in chair- 'It hurts the back of my leg'. On room air- pulse ox 98%. Abd obese, soft, amaya PO well. Voids in urinal
without difficulty. LLE dsg/KARIE wrap D/I. Pt wearing own support stocking on RLE. Resting comfortably at present. Will continue to monitor.
[2023-10-21] MEDS: MAGNESIUM OXIDE 1000 MG PO (17:12)
[2023-10-21] MEDS: XARELTO 15 MG PO (17:12)
[2023-10-21] MEDS: ZYRTEC 20 MG PO (17:12)
[2023-10-21 23:30] VITALS: BP 119/61
[2023-10-22] MEDS: ANCEF 5 IV ×3 (02:27→17:40)
[2023-10-22 06:00] VITALS: BMI 37.0
[2023-10-22 07:22] VITALS: BP 105/55
[2023-10-22 07:28] LABS: % Basophils 0.7 % (0-2); % Eosinophils 3.6 % (0-6); % Immature Granulocytes 0.2 % (0-0.5); % Lymphocytes 30.8 % (20.5-51.1); % Monocytes 14.4 % (1.7-9.3); % Neutrophils 50.3 % (42.2-75.2); Absolute Eosinophils 0.2 10^3/uL (0-0.7); Absolute Lymphocytes 1.9 10^3/uL (1.2-3.4); Absolute Monocytes 0.9 10^3/uL (0.1-0.6); Absolute Neutrophils 3.1 10^3/uL (1.4-6.5); Hematocrit 37.8 % (39.0-52.0); Hemoglobin 12.8 g/dL (13.0-18.0); Mean Corp Hgb Conc. 33.9 g/dL (33.0-37.0); Mean Corpuscular Hgb 30.5 pg (27.0-31.0); Nucleated Red Blood Cells % 0 % (-); Platelet Count 211 10^3/uL (130-400); Red Cell Dist. Width 13.6 % (11.5-14.5); White Blood Cell Count 6.1 10^3/uL (4.8-10.8)
[2023-10-22 07:47] LABS: Blood Urea Nitrogen 38 mg/dl (9-20); Calcium 9.6 mg/dl (8.4-10.2); Carbon Dioxide 34 mmol/L (22-30); Chloride 92 mmol/L (98-107); Estimated Creatinine Clearance 46 ml/min; Glucose 99 mg/dl (70-99); Potassium 3.4 mmol/L (3.5-5.1); Sodium 137 mmol/L (135-145); eGFR 37.71
[2023-10-22] MEDS: TENORMIN 25 MG PO (08:21)
[2023-10-22] MEDS: KCL 40 MEQ PO ×2 (08:22→21:59)
[2023-10-22] MEDS: VITAMIN C 1000 MG PO (08:22)
[2023-10-22] MEDS: VITAMIN D3 (cholecalciferol) 25 MCG PO (08:22)
--- NOTE | 2023-10-22 10:02 | CM ---
Bedside meeting with pt and Dr trinidad- no set ADC at this time
Will continue with diuretics and abx for cellulitis
At this time, outpt therapy recommended
Advanced directive info provided to pt per his request
Discharge Disposition- home, anticipate with outpt therapy, wach abx
[2023-10-22] MEDS: LASIX 80 MG IV ×2 (10:41→17:40)
--- NOTE | 2023-10-22 11:03 | W.PN.HOSP.TC ---
Addendum entered and electronically signed by Brandon Isabel MD 10/22/23 18:36:
Ultrasound of LE neg for DVT
Original Note:
Today's Communication/Plan
-
continue to follow labs/wt
continue IC Ancef
continue IV Lasix diuresis
Assessment / Plan
Assessment / Plan
# Cellulitis of left lower extremity superimposed on chronic lymphedema
not resolved, but appears to be responding to IV abx
-Vancomycin/Zosyn change to IV cefazolin 10/20 since it will cover strep cellulitis and also will be less nephrotoxic.
- ultrasound of the left lower extremity done 10/21, results are pending
-WBC 11.2-->7.9-->8.5-->6.5-->6.1. Overall leukocytosis trending down appropriately.
-Wound care consulted
-Compression stockings to control edema/lymphedema
-PT OT eval
# Acute kidney injury felt to be related to cardiorenal syndrome. There might be an element of CKD as well
-Creatinine 1.9 today but suspect some element of cardiorenal syndrome
-Continue to avoid nephrotoxic
-Continue to monitor renal function
-Ultrasound of the kidneys reviewed and no obstruction or acute significant abnormalities except for cysts that can be follow-up as outpatient and no mass.
-Cardiology recommends nephrology consult
-Nephrology consult appreciated and they will check urine studies. Nephrology okay with current diuresis.
#Acute on chronic diastolic congestive heart failure, likely valvulopathy related
IV diuretics, Lasix 80 mg twice a day
K 4.2-->3.5-->3.0-->3.4
He is on torsemide and metolazone as outpatient and has been on hold prior to admission.
BNP 1140 upon admission
Monitor strict I/O
Monitor daily weight
wt 116-->115-->113.5kg
Monitor renal function and electrolytes
Follows up with cardiology at [place] as outpatient, Dr. Hernandez
10/19/23 echocardiogram: -LV ejection fraction is 70-75%, by visual assessment. Flattened septum in
systole and diastole consistent with RV pressure and volume overload. Wall
motion is consistent with post-operative state.
-Enlarged right ventricular size. Normal right ventricular systolic function.
-Mild to moderate, eccentric mitral regurgitation.
-Status-post Ross procedure; peak/mean gradients across the aortic valve are
14/7 mmHg. Mild to moderate aortic regurgitation.
-Severe tricuspid regurgitation. Estimated pulmonary artery pressure of 55-60
mmHg.
-Status-post Ross procedure; peak/mean gradients across the pulmonic valve are
18/7 mmHg. Mild pulmonic regurgitation.
-Ascending aorta is mildly dilated, measuring 4.2 cm.
-The IVC is dilated and does not collapse.
Continue guideline-directed medical therapy for heart failure (GDMT)
Fluid restriction
Salt restriction
Heart failure education
Follow up clinical response
#Hypokalemia
Replete potassium today
Will restart back his oral standing doses of potassium and monitor closely
Magnesium levels 2.5 so no need for replacement
#Hyponatremia
Likely hypervolemic hyponatremia
Sodium up to 136-->137 with diuresis from 133 upon admission
Continue to monitor sodium
#Anemia
No signs of active bleeding
Hemoglobin 11.7-->12.8 stable
Continue to monitor hemoglobin
#Persistent atrial fibrillation
-Continue anticoagulant, Xarelto
-Continue rate control, atenolol
-History of PVI and unsuccessful in the past
#Mitral regurgitation/tricuspid regurgitation/aortic regurgitation/pulmonic regurgitation/dilated ascending aorta
Echocardiogram obtained -see above
Status post Ross procedure in the past
#Morbid obesity
Weight loss modification warranted as outpatient
DNR/DNI
DVT prophylaxis�Xarelto
Regular diet
Anticipated Discharge: > 48 hours
Subjective/Interval History
-
Date of Service: October 22, 2023
Awake, alert, conversant
Objective Data
-
Labs:
Laboratory Results
10/22/23
06:38
WBC 6.1
Hgb 12.8 L
Hct 37.8 L
Plt Count 211
Sodium 137
Potassium 3.4 L
Chloride 92 L
Carbon Dioxide 34 H
BUN 38 H
Creatinine 1.9 H
Glucose 99
Calcium 9.6
Vital Signs:
Vital Signs
Temp Pulse Resp BP Pulse Ox
97.8 F 73 20 108/65 100
10/22/23 07:22 10/22/23 08:21 10/22/23 07:22 10/22/23 08:21 10/22/23 07:22
I&O
10/21/23 10/22/23 10/23/23
06:59 06:59 06:59
Intake Total 5 / 1914 1320 / 1320
Output Total 700 / 700 1825 / 1825
Balance 1215 / 1215 -505 / -505
Review of Systems
-
History Source: Patient and Coordinated Provider
Constitutional: Reports No Symptoms; Denies Fever
EENT: Reports No Symptoms Reported
Respiratory: Reports No Symptoms
Cardiac: Reports No Symptoms
Abdomen/GI: Reports No Symptoms
Genitourinary: Reports No Symptoms
Musculoskeletal: Reports Edema
Neuro: Reports No Symptoms
Physical Exam
-
General: Well Developed, Well Nourished, No Apparent Distress, Comfortable and Obese; Negative Respiratory Distress
HEENT: Normocephalic and Atraumatic
Respiratory: Clear to Auscultation; Negative Wheezes, Rales or Rhonchi
Cardiac: S1/S2 and Irregular Rhythm
GI: Soft, Nontender and Nondistended
Musculoskeletal: No Clubbing, No Cyanosis and Other (left lower ext with 4+edema, but decrease in erythema, continued serous drainage)
Skin: Rash (left LE)
Neuro: Awake, Alert and Oriented
--- NOTE | 2023-10-22 12:06 | W.PN.NEPH.PH ---
Addendum entered and electronically signed by Ele Garcia MD 10/22/23 14:49:
I am unsure if the pateint has JEANIE on CKD 3a vs. CKD 3b
Original Note:
Today's Communication / Plan
-
- continue with lasix
Assessment/Plan
-
Impression:
CKD (1.8)
Renal cysts
Cellulitis of left lower extremity
Chronic lymphedema
Atrial fibrillation
Aortic stenosis
Severe TR history of Ross procedure
Suspected congestive heart failure
Plan:
-obtained urine eosinophils to assess for possible drug-induced interstitial nephritis with antibiotic use for lower extremity cellulitis -negative
-Kidney ultrasound reviewed and without acute or obstructive findings notable for renal cystic disease
-Proceed forward with IV diuresis given gross volume overload (80mg IV BID), increasing urine output creatinine stabilized at 1.9
-Replete potassium
-Obtained urine studies which will include fractional secretion of sodium and urinalysis urine protein to urine creatinine ratio 100mg (UA bland)
-I do not think the patient's elevated creatinine is due to an underlying infectious glomerulonephritis. anti stretolysin negative
-Adjust Zosyn for GFR of less than 40
-Follow vancomycin level
-Follow accurate I's and O's
-
-
Date of Service: October 22, 2023
CC / HPI / ROS
-
Chief Complaint:
Chronic kidney disease
History of Present Illness:
Creatinines table at 1.9
Hemodynamically stable
Review of Systems:
Grossly nonoliguric
Weights down
Profound edema with left lower extremity cellulitis
Labs
-
Labs:
WBC 6.1 10^3/uL (4.8-10.8) 10/22/23 06:38
RBC 4.20 10^6/uL (4.70-6.10) L 10/22/23 06:38
Hgb 12.8 g/dL (13.0-18.0) L 10/22/23 06:38
Hct 37.8 % (39.0-52.0) L 10/22/23 06:38
Plt Count 211 10^3/uL (130-400) 10/22/23 06:38
Sodium 137 mmol/L (135-145) 10/22/23 06:38
Potassium 3.4 mmol/L (3.5-5.1) L 10/22/23 06:38
Chloride 92 mmol/L (98-107) L 10/22/23 06:38
Carbon Dioxide 34 mmol/L (22-30) H 10/22/23 06:38
BUN 38 mg/dl (9-20) H 10/22/23 06:38
Creatinine 1.9 mg/dL (0.7-1.3) H 10/22/23 06:38
eGFR 37.71 10/22/23 06:38
Glucose 99 mg/dl (70-99) 10/22/23 06:38
Calcium 9.6 mg/dl (8.4-10.2) 10/22/23 06:38
Zvl-C-Ruptxuqbpcz Pept 1140 pg/ml 10/19/23 17:27
Albumin 4.0 g/dl (3.5-5.0) 10/19/23 06:55
Physical Exam
-
Vital Signs:
Vital Signs
Temp Pulse Resp BP Pulse Ox
97.8 F 73 20 108/65 100
10/22/23 07:22 10/22/23 08:21 10/22/23 07:22 10/22/23 08:21 10/22/23 07:22
Cardiovascular:: Regular rate and rhythm
Respiratory:: Bilateral: Coarse
Lung Excursion:: Normal
Abdomen:: Nontender and Soft
Bowel Sounds:: Normal
Extremity Edema:: +3: Bilateral:
Leary Catheter: No
--- NOTE | 2023-10-22 13:49 | PN.CDI ---
CDI
- -
CDI:
Physician Documentation Request
Admit Date: 10/18/23 17:32
Dear Doctor Jose,
Please review the following and provide your response in the progress notes.
Clinical Indicators:
- Nephrology note 'CKD (1.8)' without further specificity
- Hospitalist notes 'Acute kidney injury...There might be an element of CKD as well'
Laboratory Tests
10/18/23 10/19/23 10/19/23
15:56 06:55 17:27
Creatinine 1.8 H 1.7 H 1.7 H
eGFR 40.24 43.10 43.10
10/20/23 10/21/23 10/22/23
05:48 05:24 06:38
Creatinine 1.8 H 2.0 H 1.9 H
eGFR 40.24 35.46 37.71
Please clarify which of the following accurately represents the patient's renal status:
JEANIE on CKD 3a
CKD 3b
JEANIE
Other
Criteria for JEANIE*
1 Increase in serum creatinine by > or = to 0.3 mg/dL (> or = to 26.5 micromol/L) within 48 hours, OR
2 Increase in serum creatinine to > or = to 1.5 times baseline, which is known or presumed to have occurred within 7 days, OR
3 Urine volume < 0.5 nL/kg/hour for six hours
Stages of Chronic Kidney Disease*
Level Description GFR
G1 Normal or High >90
G2 Mildly decreased 60-89
G3a Mildly to moderately decreased 45-59
G3b Moderately to severely decreased 30-44
G4 Severely decreased 15-29
G5 Kidney failure <15
Use of terms such as suspected, likely, concern for, or probable (associated with a specific diagnosis that is being evaluated, monitored, or treated as if it exists) are acceptable and can be coded in the inpatient setting, when documented at the
time of discharge.
Thank you,
Jose Roberto Kelly RN
CDI Specialist
Please use your independent medical judgment in providing your response.
*Source: Kidney Disease: Improving Global Outcomes (KDIGO) 2012
[2023-10-22] MEDS: TYLENOL 650 MG PO ×2 (14:27→23:58)
[2023-10-22 15:48] VITALS: BP 113/66
[2023-10-22] MEDS: XARELTO 15 MG PO (17:39)
[2023-10-22] MEDS: MAGNESIUM OXIDE 1000 MG PO (17:39)
[2023-10-22] MEDS: ZYRTEC 20 MG PO (17:40)
[2023-10-22 23:21] VITALS: BP 127/60
[2023-10-23] MEDS: ANCEF 5 IV ×3 (02:29→17:08)
[2023-10-23] MEDS: TYLENOL 1000 MG PO (03:00)
[2023-10-23 06:00] VITALS: BMI 37.3
--- NOTE | 2023-10-23 07:32 | W.PN.HOSP.TC ---
Today's Communication/Plan
-
IV Lasix and add metolazone continue IV antibiotics
Assessment / Plan
Assessment / Plan
Physical exam:
General: Acutely ill
HEENT: Normocephalic, Atraumatic and Moist Mucous Membranes
Respiratory: Few coarse crackles in the bases; Negative Wheezes or Rhonchi
Cardiac: Regular Rhythm and S1/S2, systolic murmur
GI: Soft, Nontender and Nondistended, obese
Musculoskeletal: Bilateral edema. Left lower extremity wrapped up with erythema and serous discharge. Right lower extremity also has some erythema but less pronounced. No Clubbing, No Cyanosis.
Neuro: Awake, Alert and Oriented, no gross neurological deficits.
Psych: Calm
Echocardiogram:
-LV ejection fraction is 70-75%, by visual assessment. Flattened septum in
systole and diastole consistent with RV pressure and volume overload. Wall
motion is consistent with post-operative state.
-Enlarged right ventricular size. Normal right ventricular systolic function.
-Mild to moderate, eccentric mitral regurgitation.
-Status-post Ross procedure; peak/mean gradients across the aortic valve are
14/7 mmHg. Mild to moderate aortic regurgitation.
-Severe tricuspid regurgitation. Estimated pulmonary artery pressure of 55-60
mmHg.
-Status-post Ross procedure; peak/mean gradients across the pulmonic valve are
18/7 mmHg. Mild pulmonic regurgitation.
-Ascending aorta is mildly dilated, measuring 4.2 cm.
-The IVC is dilated and does not collapse.
No prior study available for comparison.
A/P:
#Acute on chronic diastolic congestive heart failure, likely valvulopathy related
IV diuretics, Lasix 80 mg twice a day and his weight is rather going up and more edema so we will add metolazone today.
K 4.2-->3.5-->3.0-->3.4
He is on torsemide and metolazone as outpatient and has been on hold prior to admission.
BNP 1140 upon admission
Monitor strict I/O
Monitor daily weight
wt 116-->115-->113.5-->114.4kg
Monitor renal function and electrolytes
Follows up with cardiology at [place] as outpatient, Dr. Hernandez
10/19/23 echocardiogram reviewed
Continue guideline-directed medical therapy for heart failure (GDMT)
Fluid restriction
Salt restriction
Heart failure education
Follow up clinical response
# Cellulitis of left lower extremity superimposed on chronic lymphedema
not resolved, but appears to be responding to IV abx
-Vancomycin/Zosyn change to IV cefazolin 10/20 since it will cover strep cellulitis and also will be less nephrotoxic.
- ultrasound of the left lower extremity done 10/21, results negative for DVT.
-WBC 11.2-->7.9-->8.5-->6.5-->6.1. Overall leukocytosis trending down appropriately and now will check every so often as needed.
-Wound care consulted
-Compression stockings to control edema/lymphedema
-PT OT feels no skilled PT or OT needed
# Acute kidney injury felt to be related to cardiorenal syndrome. There might be an element of CKD as well
-Creatinine 1.8 today but likely some element of cardiorenal syndrome
-Continue to avoid nephrotoxic
-Continue to monitor renal function
-Ultrasound of the kidneys reviewed and no obstruction or acute significant abnormalities except for cysts that can be follow-up as outpatient and no mass.
-Cardiology recommends nephrology consult
-Nephrology consult appreciated. Nephrology okay with current diuresis.
#Hypokalemia
Replete potassium today
Restarted back his oral standing doses of potassium and monitor closely
Magnesium levels 2.5 last time and remains on replacement
#Hyponatremia
Likely hypervolemic hyponatremia
Sodium up to 136-->137 with diuresis from 133 upon admission
Continue to monitor sodium
#Anemia
No signs of active bleeding
Hemoglobin 11.7-->12.8 last time stable
Monitor hb as needed
#Persistent atrial fibrillation
-Continue anticoagulant, Xarelto
-Continue rate control, atenolol
-History of PVI and unsuccessful in the past
#Mitral regurgitation/tricuspid regurgitation/aortic regurgitation/pulmonic regurgitation/dilated ascending aorta
Echocardiogram obtained -see results
Status post Ross procedure in the past
#Morbid obesity
Weight loss modification warranted as outpatient
DNR/DNI
DVT prophylaxis�Xarelto
Total time spent on today's encounter was 52 minutes which included time spent in counseling the patient/family regarding diagnosis and treatment plan as listed above, goals of care, and symptom management. Case was discussed with nursing staff,
specialists, and care coordinators/case management. All labs and imaging personally reviewed by me. Remainder the time spent in detailed review of previous records, lab data, imaging, and other medical provider documentation.
Anticipated Discharge: > 48 hours
Subjective/Interval History
-
Date of Service: October 23, 2023
Patient feels peripheral edema has gotten worse. His weight is coming up. No chest pain. Afebrile
Objective Data
-
Labs:
Laboratory Results
10/23/23
07:27
Sodium Pending
Potassium Pending
Chloride Pending
Carbon Dioxide Pending
BUN Pending
Creatinine Pending
Glucose Pending
Calcium Pending
Vital Signs:
Vital Signs
Temp Pulse Resp BP Pulse Ox
97.8 F 86 18 127/60 97
10/22/23 23:21 10/22/23 23:21 10/22/23 23:21 10/22/23 23:21 10/22/23 23:21
I&O
10/22/23 10/23/23 10/24/23
06:59 06:59 06:59
Intake Total 1320 / 1320 1080 / 1080
Output Total 1825 / 1822129 / 2129
Balance -505 / -505 -1050 / -1050
[2023-10-23 07:58] VITALS: BP 129/76
[2023-10-23 08:35] LABS: Blood Urea Nitrogen 44 mg/dl (9-20); Calcium 9.7 mg/dl (8.4-10.2); Carbon Dioxide 31 mmol/L (22-30); Chloride 94 mmol/L (98-107); Estimated Creatinine Clearance 48 ml/min; Glucose 122 mg/dl (70-99); Potassium 3.4 mmol/L (3.5-5.1); Sodium 137 mmol/L (135-145); eGFR 40.24
[2023-10-23] MEDS: KCL 40 MEQ PO ×3 (08:48→20:42)
[2023-10-23] MEDS: VITAMIN C 1000 MG PO (08:49)
[2023-10-23] MEDS: TENORMIN 25 MG PO (08:49)
[2023-10-23] MEDS: VITAMIN D3 (cholecalciferol) 25 MCG PO (08:49)
[2023-10-23] MEDS: ZAROXOLYN 2.5 MG PO (08:57)
[2023-10-23] MEDS: LASIX 80 MG IV ×2 (09:27→17:08)
--- NOTE | 2023-10-23 11:52 | W.PN.CD ---
Today's Communication / Plan
-
Cont IV diuresis wiht metolazone augmentation
Dry weihgt 235-240 lbs
Impression / Plan
-
HFpEF, acute on chronic
-Continue Lasix 80 mg IV BID; Nephrology following, agree wtih metolazone
-235-240 lbs, gained 2 lbs overnight
-Continue to trend daily weight, I/O, and BMP with diuresis.
Severe tricuspid regurgitation (likely chronic):
-Diuretic management as above.
Mild to moderate, eccentric mitral regurgitation
Hyponatremia, likely hypervolemic
JEANIE on CKD (I suspect)
-Nephrology consulted.
-He is currently receiving intravenous vancomycin
Status post Ross procedure
-Peak/mean gradients across the pulmonic valve are 18/7 mmHg. Mild pulmonic regurgitation.
-Peak/mean gradients across the aortic valve are 14/7 mmHg. Mild to moderate aortic regurgitation.
Persistent atrial fibrillation
-Prior PVI was unsuccessful
-HRs are controlled
-Oral Anticoagulation: Rivaroxaban 15 mg daily (dose adjusted due to renal function)
-[id number]: Score at least 2 (Heart failure, age 65-74)
Left lower extremity cellulitis superimposed on chronic lymphedema, per primary
Dilated ascending aorta, 4.2 cm
Obesity, BMI 37.8, he would benefit from weight loss
Physical Exam
Vital Signs/Labs
Vital Signs
Temp Pulse Resp BP Pulse Ox
98 F 66 18 129/76 97
10/23/23 07:58 10/23/23 08:49 10/23/23 07:58 10/23/23 08:49 10/23/23 07:58
10/22/23 10/23/23 10/24/23
06:59 06:59 06:59
Actual Weight 250 lb 5 oz 252 lb 6 oz
10/22/23 06:38
10/23/23 07:27
Magnesium 2.5 mg/dl (1.6-2.3) H 10/21/23 05:24
10/18/23 10/19/23
15:56 17:27
Bsb-J-Rudtizzuhxc Pept 819 1140
Physical Exam
Constitutional: No acute distress
EENT: Anicteric
Cardiovascular: Rhythm/rate is irregular and Pedal edema present
Respiratory: Respiratory effort normal and Lungs clear to auscul.
GI: Soft
Neuro/Psych: AO x 3
Data Reviewed
-
Date of Service: October 23, 2023
EKG: Tracing Personally Visualized and interpreted (af)
Echo: Report Reviewed by me
Labs: Labs Reviewed by me
--- NOTE | 2023-10-23 15:13 | WOUNDNOTE ---
L LATERAL LOWER LEG
--- NOTE | 2023-10-23 15:13 | WOUNDNOTE ---
L POSTERIOR LOWER LEG
--- NOTE | 2023-10-23 15:14 | WOUNDNOTE ---
L POSTERIOR MEDIAL LOWER LEG
--- NOTE | 2023-10-23 15:15 | WOUNDNOTE ---
WON RN NOTE: Followed up with patient for venous leg ulcers. L leg tuckpointer cleaner caulker, less drainage. R lower leg with new blister, drainage moderate. Heels are intact. Patient received sitting in recliner chair, assists with lifting own legs, able to elevate
on edge of bed. Encouraged patient to elevate this way as much as possible. Suspect patient not compliant with leg elevation since new blister developed and edema is still the same. Using own compression stocking on R leg and Andrew wrap knee high to L
leg. Patient reports he is unable to elevate legs in recliner chair due to pain on back of leg despite using pillows under calves. Patient states he has been to lymphedema clinic and they have ordered lymphedema pumps for patient. He plans to follow
up with Lymphedema clinic, at home can assist patient with dressing changes. Updated nurse Eliezer and will follow as needed.
[2023-10-23 15:43] VITALS: BP 121/64
--- NOTE | 2023-10-23 16:03 | W.PN.NEPH.PH ---
Today's Communication / Plan
-
- replete K
Assessment/Plan
-
Impression:
CKD (1.8)
Renal cysts
Cellulitis of left lower extremity
Chronic lymphedema
Atrial fibrillation
Aortic stenosis
Severe TR history of Ross procedure
Suspected congestive heart failure
Plan:
-obtained urine eosinophils to assess for possible drug-induced interstitial nephritis with antibiotic use for lower extremity cellulitis -negative
-Kidney ultrasound reviewed and without acute or obstructive findings notable for renal cystic disease
-Proceed forward with IV diuresis given gross volume overload (80mg IV BID), increasing urine output creatinine stabilized at 1.8.
-weights noted to be uptrending, will need to monitor. if it is a true weight, we might need to increase lasix dose.
-Replete potassium
-Obtained urine studies which will include fractional secretion of sodium and urinalysis urine protein to urine creatinine ratio 100mg (UA bland)
-I do not think the patient's elevated creatinine is due to an underlying infectious glomerulonephritis. anti stretolysin negative
-Adjust Zosyn for GFR of less than 40
-Follow vancomycin level
-Follow accurate I's and O's
-
-
Date of Service: October 23, 2023
CC / HPI / ROS
-
Chief Complaint:
Chronic kidney disease
History of Present Illness:
Creatinines table at 1.8
Hemodynamically stable
Review of Systems:
Grossly nonoliguric
Weights down
Profound edema with left lower extremity cellulitis
Labs
-
Labs:
WBC 6.1 10^3/uL (4.8-10.8) 10/22/23 06:38
RBC 4.20 10^6/uL (4.70-6.10) L 10/22/23 06:38
Hgb 12.8 g/dL (13.0-18.0) L 10/22/23 06:38
Hct 37.8 % (39.0-52.0) L 10/22/23 06:38
Plt Count 211 10^3/uL (130-400) 10/22/23 06:38
Sodium 137 mmol/L (135-145) 10/23/23 07:27
Potassium 3.4 mmol/L (3.5-5.1) L 10/23/23 07:27
Chloride 94 mmol/L (98-107) L 10/23/23 07:27
Carbon Dioxide 31 mmol/L (22-30) H 10/23/23 07:27
BUN 44 mg/dl (9-20) H 10/23/23 07:27
Creatinine 1.8 mg/dL (0.7-1.3) H 10/23/23 07:27
eGFR 40.24 10/23/23 07:27
Glucose 122 mg/dl (70-99) H 10/23/23 07:27
Calcium 9.7 mg/dl (8.4-10.2) 10/23/23 07:27
Yqm-N-Vdfnthncvyi Pept 1140 pg/ml 10/19/23 17:27
Albumin 4.0 g/dl (3.5-5.0) 10/19/23 06:55
Physical Exam
-
Vital Signs:
Vital Signs
Temp Pulse Resp BP Pulse Ox
97.4 F 82 18 121/64 97
10/23/23 15:43 10/23/23 15:43 10/23/23 15:43 10/23/23 15:43 10/23/23 15:43
Cardiovascular:: Regular rate and rhythm
Respiratory:: Bilateral: CTA
Lung Excursion:: Normal
Abdomen:: Nontender and Soft
Bowel Sounds:: Normal
Extremity Edema:: +3: Bilateral:
Leary Catheter: No
[2023-10-23] MEDS: MAGNESIUM OXIDE 1000 MG PO (17:07)
[2023-10-23] MEDS: ZYRTEC 20 MG PO (17:08)
[2023-10-23] MEDS: XARELTO 15 MG PO (17:08)
[2023-10-23] MEDS: ULTRAM 50 MG PO (17:44)
[2023-10-23 23:21] VITALS: BP 121/67
[2023-10-24] MEDS: ULTRAM 50 MG PO ×2 (01:52→22:01)
[2023-10-24] MEDS: ANCEF 5 IV ×3 (01:53→17:10)
[2023-10-24 06:00] VITALS: BMI 36.9
[2023-10-24 07:29] LABS: Blood Urea Nitrogen 48 mg/dl (9-20); Calcium 10.2 mg/dl (8.4-10.2); Carbon Dioxide 35 mmol/L (22-30); Chloride 91 mmol/L (98-107); Estimated Creatinine Clearance 48 ml/min; Glucose 103 mg/dl (70-99); Potassium 3.5 mmol/L (3.5-5.1); Sodium 138 mmol/L (135-145); eGFR 40.24
[2023-10-24 07:42] VITALS: BP 152/87
[2023-10-24] MEDS: TENORMIN 25 MG PO (08:32)
[2023-10-24] MEDS: VITAMIN C 1000 MG PO (08:32)
[2023-10-24] MEDS: ZAROXOLYN 2.5 MG PO (08:32)
[2023-10-24] MEDS: KCL 40 MEQ PO ×2 (08:33→19:30)
[2023-10-24] MEDS: VITAMIN D3 (cholecalciferol) 25 MCG PO (08:33)
[2023-10-24] MEDS: LASIX 80 MG IV ×2 (09:40→17:09)
--- NOTE | 2023-10-24 10:16 | W.PN.CD ---
Today's Communication / Plan
-
-Continue Lasix 80 mg IV BID and metolazone; Nephrology following.
Impression / Plan
-
HFpEF, acute on chronic
-Continue Lasix 80 mg IV BID and metolazone; Nephrology following.
-Continue to trend daily weight, I/O, and BMP with diuresis.
Severe tricuspid regurgitation (likely chronic):
-Diuretic management as above.
Mild to moderate, eccentric mitral regurgitation
-Continue to monitor over time with Primary [facility] Tender (Dr. Hernandez)
JEANIE on CKD
-Nephrology following.
-He is currently receiving intravenous vancomycin.
Status post Ross procedure
-Peak/mean gradients across the pulmonic valve are 18/7 mmHg. Mild pulmonic regurgitation.
-Peak/mean gradients across the aortic valve are 14/7 mmHg. Mild to moderate aortic regurgitation.
Persistent atrial fibrillation
-Prior PVI was unsuccessful
-HRs remain controlled.
-Oral Anticoagulation: Rivaroxaban 15 mg daily (dose adjusted due to renal function)
-[id number]: Score at least 2 (Heart failure, age 65-74)
Left lower extremity cellulitis superimposed on chronic lymphedema, per primary
Dilated ascending aorta, 4.2 cm
Obesity, BMI 37.8, he would benefit from weight loss
Physical Exam
Vital Signs/Labs
Vital Signs
Temp Pulse Resp BP Pulse Ox
97.9 F 80 18 154/87 97
10/24/23 07:42 10/24/23 08:32 10/24/23 07:42 10/24/23 08:32 10/24/23 07:42
10/23/23 10/24/23 10/25/23
06:59 06:59 06:59
Actual Weight 114.475 kg 113.2 kg
10/22/23 06:38
10/24/23 06:02
Magnesium 2.5 mg/dl (1.6-2.3) H 10/21/23 05:24
10/18/23 10/19/23
15:56 17:27
Zos-H-Kqluosonuhb Pept 819 1140
Physical Exam
Constitutional: No acute distress and Comfortable
EENT: Anicteric
Cardiovascular: Rhythm/rate is irregular, Pedal edema present (4+), Systolic murmur present (3/6) and S1S2 is normal
Respiratory: Respiratory effort normal and Lungs clear to auscul.
GI: Soft
Neuro/Psych: AO x 3
Other: Skin (Warm, dry, intact)
Data Reviewed
-
Date of Service: October 24, 2023
Labs: Labs Reviewed by me
--- NOTE | 2023-10-24 12:46 | W.PN.NEPH.PH ---
Today's Communication / Plan
-
Maintain diuresis
Assessment/Plan
-
Impression:
CKD (1.8)
Renal cysts
Cellulitis of left lower extremity
Chronic lymphedema
Atrial fibrillation
Aortic stenosis
Severe TR history of Ross procedure
Suspected congestive heart failure
Plan:
-obtained urine eosinophils to assess for possible drug-induced interstitial nephritis with antibiotic use for lower extremity cellulitis -negative
-Kidney ultrasound reviewed and without acute or obstructive findings notable for renal cystic disease
-Proceed forward with IV diuresis given gross volume overload (80mg IV BID), increasing urine output creatinine stabilized at 1.8. , Weights down
-Replete potassium as needed
-Obtained urine studies which will include fractional secretion of sodium and urinalysis urine protein to urine creatinine ratio 100mg (UA bland)
-I do not think the patient's elevated creatinine is due to an underlying infectious glomerulonephritis. anti stretolysin negative
-Follow accurate I's and O's
-
-
Date of Service: October 24, 2023
CC / HPI / ROS
-
Chief Complaint:
Chronic kidney disease
History of Present Illness:
Creatinines table at 1.8
Hemodynamically stable
Review of Systems:
Grossly nonoliguric
Weights down
Profound edema with left lower extremity cellulitis
Labs
-
Labs:
WBC 6.1 10^3/uL (4.8-10.8) 10/22/23 06:38
RBC 4.20 10^6/uL (4.70-6.10) L 10/22/23 06:38
Hgb 12.8 g/dL (13.0-18.0) L 10/22/23 06:38
Hct 37.8 % (39.0-52.0) L 10/22/23 06:38
Plt Count 211 10^3/uL (130-400) 10/22/23 06:38
Sodium 138 mmol/L (135-145) 10/24/23 06:02
Potassium 3.5 mmol/L (3.5-5.1) 10/24/23 06:02
Chloride 91 mmol/L (98-107) L 10/24/23 06:02
Carbon Dioxide 35 mmol/L (22-30) H 10/24/23 06:02
BUN 48 mg/dl (9-20) H 10/24/23 06:02
Creatinine 1.8 mg/dL (0.7-1.3) H 10/24/23 06:02
eGFR 40.24 10/24/23 06:02
Glucose 103 mg/dl (70-99) H 10/24/23 06:02
Calcium 10.2 mg/dl (8.4-10.2) 10/24/23 06:02
Xki-W-Hjccewweyhx Pept 1140 pg/ml 10/19/23 17:27
Albumin 4.0 g/dl (3.5-5.0) 10/19/23 06:55
Physical Exam
-
Vital Signs:
Vital Signs
Temp Pulse Resp BP Pulse Ox
97.9 F 80 18 154/87 97
10/24/23 07:42 10/24/23 08:32 10/24/23 07:42 10/24/23 08:32 10/24/23 08:30
Cardiovascular:: Regular rate and rhythm
Respiratory:: Bilateral: CTA
Lung Excursion:: Normal
Abdomen:: Nontender and Soft
Bowel Sounds:: Normal
Extremity Edema:: +3: Bilateral:
Leary Catheter: No
--- NOTE | 2023-10-24 13:19 | W.PN.HOSP.TC ---
Today's Communication/Plan
-
Monitor vital signs
see plan
Continue antibiotics
Continue with IV Lasix, metolazone
Assessment / Plan
Assessment / Plan
Physical exam:
General: Acutely ill
HEENT: Normocephalic, Atraumatic and Moist Mucous Membranes
Respiratory: Few coarse crackles in the bases; Negative Wheezes or Rhonchi
Cardiac: Regular Rhythm and S1/S2, systolic murmur
GI: Soft, Nontender and Nondistended, obese
Musculoskeletal: Bilateral edema. Left lower extremity wrapped up with erythema and serous discharge. Right lower extremity also has some erythema but less pronounced. No Clubbing, No Cyanosis.
Neuro: Awake, Alert and Oriented, no gross neurological deficits.
Psych: Calm
Echocardiogram:
-LV ejection fraction is 70-75%, by visual assessment. Flattened septum in
systole and diastole consistent with RV pressure and volume overload. Wall
motion is consistent with post-operative state.
-Enlarged right ventricular size. Normal right ventricular systolic function.
-Mild to moderate, eccentric mitral regurgitation.
-Status-post Ross procedure; peak/mean gradients across the aortic valve are
14/7 mmHg. Mild to moderate aortic regurgitation.
-Severe tricuspid regurgitation. Estimated pulmonary artery pressure of 55-60
mmHg.
-Status-post Ross procedure; peak/mean gradients across the pulmonic valve are
18/7 mmHg. Mild pulmonic regurgitation.
-Ascending aorta is mildly dilated, measuring 4.2 cm.
-The IVC is dilated and does not collapse.
No prior study available for comparison.
A/P:
#Acute on chronic diastolic congestive heart failure, likely valvulopathy related
Continue with diuresis with Lasix and metolazone
He is on torsemide and metolazone as outpatient and has been on hold prior to admission.
BNP 1140 upon admission
Monitor strict I/O
Monitor daily weight
Monitor renal function and electrolytes
Follows up with cardiology at [facility] as outpatient, Dr. Hernandez
10/19/23 echocardiogram reviewed
Continue guideline-directed medical therapy for heart failure (GDMT)
Fluid restriction
Salt restriction
Heart failure education
Follow up clinical response
# Cellulitis of left lower extremity superimposed on chronic lymphedema
not resolved, but appears to be responding to IV abx
-Vancomycin/Zosyn change to IV cefazolin 10/20 since it will cover strep cellulitis and also will be less nephrotoxic.
- ultrasound of the left lower extremity done 10/21, results negative for DVT.
-Wound care consulted
-Compression stockings to control edema/lymphedema
-PT OT feels no skilled PT or OT needed
# Acute kidney injury felt to be related to cardiorenal syndrome. There might be an element of CKD as well
-Creatinine 1.8 today but likely some element of cardiorenal syndrome
-Continue to avoid nephrotoxic
-Continue to monitor renal function
-Ultrasound of the kidneys reviewed and no obstruction or acute significant abnormalities except for cysts that can be follow-up as outpatient and no mass.
-Cardiology and nephrology following
#Hypokalemia
monitor
Restarted back his oral standing doses of potassium and monitor closely
Magnesium levels 2.5 last time and remains on replacement
#Hyponatremia
Likely hypervolemic hyponatremia
Continue to monitor sodium
#Anemia
No signs of active bleeding
Monitor hb as needed
#Persistent atrial fibrillation
-Continue anticoagulant, Xarelto
-Continue rate control, atenolol
-History of PVI and unsuccessful in the past
#Mitral regurgitation/tricuspid regurgitation/aortic regurgitation/pulmonic regurgitation/dilated ascending aorta
Echocardiogram obtained -see results
Status post Ross procedure in the past
#Morbid obesity
Weight loss modification warranted as outpatient
DNR/DNI
DVT prophylaxis�Xarelto
Total time spent on today's encounter was 51 minutes which included time spent in counseling the patient/family regarding diagnosis and treatment plan as listed above, goals of care, and symptom management. Case was discussed with nursing staff,
specialists, and care coordinators/case management. All labs and imaging personally reviewed by me. Remainder the time spent in detailed review of previous records, lab data, imaging, and other medical provider documentation.
Anticipated Discharge: > 48 hours
Subjective/Interval History
-
Date of Service: October 24, 2023
Denies pain
Objective Data
-
Labs:
Laboratory Results
10/24/23
06:02
Sodium 138
Potassium 3.5
Chloride 91 L
Carbon Dioxide 35 H
BUN 48 H
Creatinine 1.8 H
Glucose 103 H
Calcium 10.2
Vital Signs:
Vital Signs
Temp Pulse Resp BP Pulse Ox
97.9 F 80 18 154/87 97
10/24/23 07:42 10/24/23 08:32 10/24/23 07:42 10/24/23 08:32 10/24/23 08:30
I&O
10/23/23 10/24/23 10/25/23
06:59 06:59 06:59
Intake Total 1080 / 1080 1860 / 1860
Output Total 2130 / 2130 2900 / 2900
Balance -1050 / -1050 -1040 / -1040
[2023-10-24 16:03] VITALS: BP 126/69
[2023-10-24] MEDS: MAGNESIUM OXIDE 1000 MG PO (17:10)
[2023-10-24] MEDS: ZYRTEC 20 MG PO (17:10)
[2023-10-24] MEDS: XARELTO 15 MG PO (17:10)
[2023-10-24] MEDS: TYLENOL 650 MG PO (19:30)
[2023-10-24 23:30] VITALS: BP 132/69
[2023-10-25] MEDS: ANCEF 5 IV ×3 (01:02→17:26)
[2023-10-25 05:37] VITALS: BMI 36.3
[2023-10-25 07:00] VITALS: BP 117/69
[2023-10-25 07:28] LABS: % Basophils 0.5 % (0-2); % Immature Granulocytes 0.3 % (0-0.5); % Lymphocytes 18.3 % (20.5-51.1); % Monocytes 14.8 % (1.7-9.3); % Neutrophils 64.1 % (42.2-75.2); Absolute Basophils 0.1 10^3/uL (0-0.2); Absolute Eosinophils 0.2 10^3/uL (0-0.7); Absolute Lymphocytes 1.8 10^3/uL (1.2-3.4); Absolute Monocytes 1.5 10^3/uL (0.1-0.6); Absolute Neutrophils 6.4 10^3/uL (1.4-6.5); Hematocrit 37.1 % (39.0-52.0); Hemoglobin 12.7 g/dL (13.0-18.0); Mean Corp Hgb Conc. 34.2 g/dL (33.0-37.0); Mean Corpuscular Volume 87.5 fL (80.0-94.0); Nucleated Red Blood Cells % 0 % (-); Platelet Count 231 10^3/uL (130-400); Red Blood Cell Count 4.24 10^6/uL (4.70-6.10); Red Cell Dist. Width 13.8 % (11.5-14.5); White Blood Cell Count 9.9 10^3/uL (4.8-10.8)
[2023-10-25 08:43] LABS: Blood Urea Nitrogen 63 mg/dl (9-20); Calcium 10.1 mg/dl (8.4-10.2); Carbon Dioxide 35 mmol/L (22-30); Chloride 88 mmol/L (98-107); Estimated Creatinine Clearance 50 ml/min; Glucose 100 mg/dl (70-99); Potassium 3.4 mmol/L (3.5-5.1); Sodium 134 mmol/L (135-145)
[2023-10-25] MEDS: VITAMIN D3 (cholecalciferol) 25 MCG PO (09:15)
[2023-10-25] MEDS: KCL 40 MEQ PO ×2 (09:16→20:58)
[2023-10-25] MEDS: TENORMIN 25 MG PO (09:16)
[2023-10-25] MEDS: VITAMIN C 1000 MG PO (09:16)
[2023-10-25] MEDS: ZAROXOLYN 2.5 MG PO (09:16)
[2023-10-25] MEDS: LASIX 80 MG IV ×2 (09:16→17:25)
--- NOTE | 2023-10-25 10:45 | CM ---
Continues on IV Lasix.
On IV antibiotics.
PT OT state back to independent baseline,
Possible wound care needs
PLAN Home with possible wound care needs
--- NOTE | 2023-10-25 11:35 | W.PN.HOSP.TC ---
Today's Communication/Plan
-
Monitor vital signs
see plan
Renal function continues to improve, continue with diuresis
Continue antibiotic
Replete potassium
Assessment / Plan
Assessment / Plan
Physical exam:
General: Acutely ill
HEENT: Normocephalic, Atraumatic and Moist Mucous Membranes
Respiratory: Few coarse crackles in the bases; Negative Wheezes or Rhonchi
Cardiac: Regular Rhythm and S1/S2, systolic murmur
GI: Soft, Nontender and Nondistended, obese
Musculoskeletal: Bilateral edema. Left lower extremity wrapped up with erythema and serous discharge. Right lower extremity also has some erythema but less pronounced. No Clubbing, No Cyanosis.
Neuro: Awake, Alert and Oriented, no gross neurological deficits.
Psych: Calm
Echocardiogram:
-LV ejection fraction is 70-75%, by visual assessment. Flattened septum in
systole and diastole consistent with RV pressure and volume overload. Wall
motion is consistent with post-operative state.
-Enlarged right ventricular size. Normal right ventricular systolic function.
-Mild to moderate, eccentric mitral regurgitation.
-Status-post Ross procedure; peak/mean gradients across the aortic valve are
14/7 mmHg. Mild to moderate aortic regurgitation.
-Severe tricuspid regurgitation. Estimated pulmonary artery pressure of 55-60
mmHg.
-Status-post Ross procedure; peak/mean gradients across the pulmonic valve are
18/7 mmHg. Mild pulmonic regurgitation.
-Ascending aorta is mildly dilated, measuring 4.2 cm.
-The IVC is dilated and does not collapse.
No prior study available for comparison.
A/P:
#Acute on chronic diastolic congestive heart failure, likely valvulopathy related
Continue with diuresis with Lasix and metolazone
He is on torsemide and metolazone as outpatient and has been on hold prior to admission.
BNP 1140 upon admission
Monitor strict I/O
Monitor daily weight
Monitor renal function and electrolytes
Follows up with cardiology at [facility] as outpatient, Dr. Hernandez
10/19/23 echocardiogram reviewed
Continue guideline-directed medical therapy for heart failure (GDMT)
Fluid restriction
Creatinine 1.7, continue with diuresis
Heart failure education
Follow up clinical response
# Cellulitis of left lower extremity superimposed on chronic lymphedema
not resolved, but appears to be responding to IV abx
-Vancomycin/Zosyn change to IV cefazolin 10/20 since it will cover strep cellulitis and also will be less nephrotoxic.
- ultrasound of the left lower extremity done 10/21, results negative for DVT.
-Wound care consulted
-Compression stockings to control edema/lymphedema
-PT OT feels no skilled PT or OT needed
# Acute kidney injury felt to be related to cardiorenal syndrome. There might be an element of CKD as well
-Creatinine 1.7 today but likely some element of cardiorenal syndrome
-Continue to avoid nephrotoxic
-Continue to monitor renal function
-Ultrasound of the kidneys reviewed and no obstruction or acute significant abnormalities except for cysts that can be follow-up as outpatient and no mass.
-Cardiology and nephrology following
#Hypokalemia
monitor
Restarted back his oral standing doses of potassium and monitor closely
Magnesium levels 2.5 last time and remains on replacement
#Hyponatremia
Likely hypervolemic hyponatremia
Continue to monitor sodium
#Anemia
No signs of active bleeding
Monitor hb as needed
#Persistent atrial fibrillation
-Continue anticoagulant, Xarelto
-Continue rate control, atenolol
-History of PVI and unsuccessful in the past
#Mitral regurgitation/tricuspid regurgitation/aortic regurgitation/pulmonic regurgitation/dilated ascending aorta
Echocardiogram obtained -see results
Status post Ross procedure in the past
#Morbid obesity
Weight loss modification warranted as outpatient
DNR/DNI
DVT prophylaxis�Xarelto
Total time spent on today's encounter was 52 minutes which included time spent in counseling the patient/family regarding diagnosis and treatment plan as listed above, goals of care, and symptom management. Case was discussed with nursing staff,
specialists, and care coordinators/case management. All labs and imaging personally reviewed by me. Remainder the time spent in detailed review of previous records, lab data, imaging, and other medical provider documentation.
Anticipated Discharge: 24 - 48 hours
Subjective/Interval History
-
Date of Service: October 25, 2023
Denies nausea
Objective Data
-
Labs:
Laboratory Results
10/25/23 10/25/23
06:17 08:07
WBC 9.9
Hgb 12.7 L
Hct 37.1 L
Plt Count 231
Sodium 134 L
Potassium 3.4 L
Chloride 88 L
Carbon Dioxide 35 H
BUN 63 H
Creatinine 1.7 H
Glucose 100 H
Calcium 10.1
Vital Signs:
Vital Signs
Temp Pulse Resp BP Pulse Ox
98.3 F 79 17 117/69 96
10/25/23 07:00 10/25/23 09:16 10/25/23 07:00 10/25/23 09:16 10/25/23 07:00
I&O
10/24/23 10/25/23 10/26/23
06:59 06:59 06:59
Intake Total 1860 / 1860 1380 / 1380
Output Total 2900 / 2900 4250 / 4250
Balance -1040 / -1040 -2870 / -2870
--- NOTE | 2023-10-25 14:09 | W.PN.NEPH.PH ---
Today's Communication / Plan
-
Replete potassium
Maintain diuresis
Assessment/Plan
-
Impression:
CKD (1.8)
Renal cysts
Cellulitis of left lower extremity
Chronic lymphedema
Atrial fibrillation
Aortic stenosis
Severe TR history of Ross procedure
Suspected congestive heart failure
Plan:
-obtained urine eosinophils to assess for possible drug-induced interstitial nephritis with antibiotic use for lower extremity cellulitis -negative
-Kidney ultrasound reviewed and without acute or obstructive findings notable for renal cystic disease
-Proceed forward with IV diuresis given gross volume overload (80mg IV BID and metolazone), increasing urine output creatinine stabilized at 1.7 , Weights down
-Obtained urine studies which will include fractional secretion of sodium and urinalysis urine protein to urine creatinine ratio 100mg (UA bland)
-I do not think the patient's elevated creatinine is due to an underlying infectious glomerulonephritis. anti stretolysin negative
-Follow accurate I's and O's
-Greater than 4 L urine output noted
-Replete potassium
-
-
Date of Service: October 25, 2023
CC / HPI / ROS
-
Chief Complaint:
Chronic kidney disease
History of Present Illness:
Creatinines table at 1.7
Potassium low
Hemodynamically stable
Review of Systems:
Grossly nonoliguric
Weights down
Profound edema with left lower extremity cellulitis
Labs
-
Labs:
WBC 9.9 10^3/uL (4.8-10.8) 10/25/23 06:17
RBC 4.24 10^6/uL (4.70-6.10) L 10/25/23 06:17
Hgb 12.7 g/dL (13.0-18.0) L 10/25/23 06:17
Hct 37.1 % (39.0-52.0) L 10/25/23 06:17
Plt Count 231 10^3/uL (130-400) 10/25/23 06:17
Sodium 134 mmol/L (135-145) L 10/25/23 08:07
Potassium 3.4 mmol/L (3.5-5.1) L 10/25/23 08:07
Chloride 88 mmol/L (98-107) L 10/25/23 08:07
Carbon Dioxide 35 mmol/L (22-30) H 10/25/23 08:07
BUN 63 mg/dl (9-20) H 10/25/23 08:07
Creatinine 1.7 mg/dL (0.7-1.3) H 10/25/23 08:07
eGFR 43.10 10/25/23 08:07
Glucose 100 mg/dl (70-99) H 10/25/23 08:07
Calcium 10.1 mg/dl (8.4-10.2) 10/25/23 08:07
Fjk-M-Qpoveotjkmd Pept 1140 pg/ml 10/19/23 17:27
Albumin 4.0 g/dl (3.5-5.0) 10/19/23 06:55
Physical Exam
-
Vital Signs:
Vital Signs
Temp Pulse Resp BP Pulse Ox
98.3 F 79 17 117/69 96
10/25/23 07:00 10/25/23 09:16 10/25/23 07:00 10/25/23 09:16 10/25/23 12:01
Cardiovascular:: Regular rate and rhythm
Respiratory:: Bilateral: CTA
Lung Excursion:: Normal
Abdomen:: Nontender and Soft
Bowel Sounds:: Normal
Extremity Edema:: +3: Bilateral:
Leary Catheter: No
[2023-10-25 15:00] VITALS: BP 123/79
--- NOTE | 2023-10-25 16:10 | W.PN.CD ---
Today's Communication / Plan
-
Cont IV diuresis
Impression / Plan
-
HFpEF, acute on chronic
-Continue Lasix 80 mg IV BID and metolazone; Nephrology following.
-Continue to trend daily weight, I/O, and BMP with diuresis.
Severe tricuspid regurgitation (likely chronic):
-Diuretic management as above.
Mild to moderate, eccentric mitral regurgitation
-Continue to monitor over time with Primary [employer] Service [employer] (Dr. Hernandez)
JEANIE on CKD
-Nephrology following.
-He is currently receiving intravenous vancomycin.
Status post Ross procedure
-Peak/mean gradients across the pulmonic valve are 18/7 mmHg. Mild pulmonic regurgitation.
-Peak/mean gradients across the aortic valve are 14/7 mmHg. Mild to moderate aortic regurgitation.
Persistent atrial fibrillation
-Prior PVI was unsuccessful
-HRs remain controlled.
-Oral Anticoagulation: Rivaroxaban 15 mg daily (dose adjusted due to renal function)
-[id number]: Score at least 2 (Heart failure, age 65-74)
Left lower extremity cellulitis superimposed on chronic lymphedema, per primary
Dilated ascending aorta, 4.2 cm
Obesity, BMI 37.8, he would benefit from weight loss
Subjective: No new complaints, slow diuresis
Physical Exam
Vital Signs/Labs
Vital Signs
Temp Pulse Resp BP Pulse Ox
98 F 79 16 123/79 96
10/25/23 15:00 10/25/23 15:00 10/25/23 15:00 10/25/23 15:00 10/25/23 15:00
10/24/23 10/25/23 10/26/23
06:59 06:59 06:59
Actual Weight 249 lb 9 oz 245 lb 11.2 oz
10/25/23 06:17
10/25/23 08:07
Magnesium 2.5 mg/dl (1.6-2.3) H 10/21/23 05:24
10/18/23 10/19/23
15:56 17:27
Eha-P-Alfrmqcnwhd Pept 819 1140
Physical Exam
Constitutional: No acute distress
EENT: Anicteric
Cardiovascular: Rhythm/rate is irregular and Pedal edema present (tense edema b/l )
Respiratory: Respiratory effort normal and Lungs clear to auscul.
GI: Soft
Neuro/Psych: AO x 3
Data Reviewed
-
Date of Service: October 25, 2023
EKG: Tracing Personally Visualized and interpreted (af)
Echo: Report Reviewed by me
Labs: Labs Reviewed by me
[2023-10-25] MEDS: ZYRTEC 20 MG PO (17:26)
[2023-10-25] MEDS: MAGNESIUM OXIDE 1000 MG PO (17:26)
[2023-10-25] MEDS: XARELTO 15 MG PO (17:26)
[2023-10-25 23:12] VITALS: BP 113/56
[2023-10-26] MEDS: ANCEF 5 IV ×2 (01:37→09:21)
[2023-10-26 06:00] VITALS: BMI 36.1
[2023-10-26 08:07] VITALS: BP 134/68
[2023-10-26 08:18] LABS: % Basophils 0.3 % (0-2); % Eosinophils 1.7 % (0-6); % Immature Granulocytes 0.3 % (0-0.5); % Lymphocytes 20.2 % (20.5-51.1); % Monocytes 15.4 % (1.7-9.3); % Neutrophils 62.1 % (42.2-75.2); Absolute Eosinophils 0.2 10^3/uL (0-0.7); Absolute Lymphocytes 1.7 10^3/uL (1.2-3.4); Absolute Monocytes 1.3 10^3/uL (0.1-0.6); Absolute Neutrophils 5.4 10^3/uL (1.4-6.5); Hematocrit 36.5 % (39.0-52.0); Hemoglobin 12.4 g/dL (13.0-18.0); Mean Corpuscular Hgb 29.8 pg (27.0-31.0); Mean Corpuscular Volume 87.7 fL (80.0-94.0); Nucleated Red Blood Cells % 0 % (-); Platelet Count 243 10^3/uL (130-400); Red Blood Cell Count 4.16 10^6/uL (4.70-6.10); Red Cell Dist. Width 13.7 % (11.5-14.5); White Blood Cell Count 8.6 10^3/uL (4.8-10.8)
--- NOTE | 2023-10-26 08:26 | W.PN.CD ---
Today's Communication / Plan
-
-Continue Lasix 80 mg IV BID and metolazone 2.5 mg daily; Nephrology following.
Impression / Plan
-
HFpEF, acute on chronic
-Continue Lasix 80 mg IV BID and metolazone 2.5 mg daily; Nephrology following.
-Continue to trend daily weight, I/O, and BMP with diuresis.
Severe tricuspid regurgitation (likely chronic):
-Continue diuretics as above.
Mild to moderate, eccentric mitral regurgitation
-Continue to monitor over time with Primary Resident Care Director (Dr. Hernandez)
JEANIE on CKD
-Nephrology following.
Status post Ross procedure
-Peak/mean gradients across the pulmonic valve are 18/7 mmHg. Mild pulmonic regurgitation.
-Peak/mean gradients across the aortic valve are 14/7 mmHg. Mild to moderate aortic regurgitation.
Persistent atrial fibrillation
-Prior PVI was unsuccessful
-HRs remain controlled.
-Oral Anticoagulation: Rivaroxaban 15 mg daily (dose adjusted due to renal function)
-[id number]: Score at least 2 (Heart failure, age 65-74)
Left lower extremity cellulitis superimposed on chronic lymphedema, per primary
Dilated ascending aorta, 4.2 cm
Obesity, BMI 37.8, he would benefit from weight loss
Subjective:
Dyspnea and weight improving.
Physical Exam
Vital Signs/Labs
Vital Signs
Temp Pulse Resp BP Pulse Ox
97.8 F 79 18 134/68 98
10/26/23 08:07 10/26/23 08:07 10/26/23 08:07 10/26/23 08:07 10/26/23 08:07
10/25/23 10/26/23 10/27/23
06:59 06:59 06:59
Actual Weight 111.448 kg 110.932 kg
10/26/23 06:19
Magnesium 2.5 mg/dl (1.6-2.3) H 10/21/23 05:24
10/18/23 10/19/23
15:56 17:27
Ogc-W-Mfeuauziaqf Pept 819 1140
Physical Exam
Constitutional: No acute distress and Comfortable
EENT: Anicteric
Cardiovascular: Rhythm & rate is regular, Pedal edema present (4+), Systolic murmur present (3/6) and S1S2 is normal
Respiratory: Respiratory effort normal and Lungs clear to auscul.
GI: Soft
Neuro/Psych: AO x 3
Data Reviewed
-
Date of Service: October 26, 2023
Labs: Labs Reviewed by me
[2023-10-26 09:00] LABS: Blood Urea Nitrogen 70 mg/dl (9-20); Calcium 9.7 mg/dl (8.4-10.2); Carbon Dioxide 36 mmol/L (22-30); Chloride 86 mmol/L (98-107); Estimated Creatinine Clearance 41 ml/min; Glucose 123 mg/dl (70-99); Potassium 3.3 mmol/L (3.5-5.1); Sodium 134 mmol/L (135-145); eGFR 33.45
[2023-10-26] MEDS: LASIX 80 MG IV (09:17)
[2023-10-26] MEDS: ZAROXOLYN 2.5 MG PO (09:20)
[2023-10-26] MEDS: VITAMIN C 1000 MG PO (09:20)
[2023-10-26] MEDS: TENORMIN 25 MG PO (09:20)
[2023-10-26] MEDS: VITAMIN D3 (cholecalciferol) 25 MCG PO (09:20)
[2023-10-26] MEDS: KCL 40 MEQ PO ×2 (09:20→21:41)
--- NOTE | 2023-10-26 09:49 | CM ---
Addendum entered by Danika Schreiber 10/27/23 10:07:
[facility] has accepted for home health/wound care at discharge.
Plan: Discharge to home with [facility]. Please fax records to [phone] at discharge.
Original Note:
Cardiology involved.
Continues on IV Lasix.
On IV antibiotics.
PT OT state back to independent baseline,
Will need wound care .
Offered VN he requested [facility] VN . Placed in care port.
PLAN Home with [facility] VN fax [phone] for wound care needs
--- NOTE | 2023-10-26 10:40 | W.PN.HOSP.TC ---
Today's Communication/Plan
-
Monitor vital signs
see plan
Awaiting nephrology evaluation regarding diuresis today
Creatinine 2.1
Change antibiotics to p.o. Keflex
Assessment / Plan
Assessment / Plan
Physical exam:
General: Acutely ill
HEENT: Normocephalic, Atraumatic and Moist Mucous Membranes
Respiratory: Few coarse crackles in the bases; Negative Wheezes or Rhonchi
Cardiac: Regular Rhythm and S1/S2, systolic murmur
GI: Soft, Nontender and Nondistended, obese
Musculoskeletal: Bilateral edema. Left lower extremity wrapped up with erythema and serous discharge. Right lower extremity also has some erythema but less pronounced.
Neuro: Awake, Alert and Oriented, no gross neurological deficits.
Psych: Calm
Echocardiogram:
-LV ejection fraction is 70-75%, by visual assessment. Flattened septum in
systole and diastole consistent with RV pressure and volume overload. Wall
motion is consistent with post-operative state.
-Enlarged right ventricular size. Normal right ventricular systolic function.
-Mild to moderate, eccentric mitral regurgitation.
-Status-post Ross procedure; peak/mean gradients across the aortic valve are
14/7 mmHg. Mild to moderate aortic regurgitation.
-Severe tricuspid regurgitation. Estimated pulmonary artery pressure of 55-60
mmHg.
-Status-post Ross procedure; peak/mean gradients across the pulmonic valve are
18/7 mmHg. Mild pulmonic regurgitation.
-Ascending aorta is mildly dilated, measuring 4.2 cm.
-The IVC is dilated and does not collapse.
No prior study available for comparison.
A/P:
#Acute on chronic diastolic congestive heart failure, likely valvulopathy related
Continue with diuresis with Lasix and metolazone
He is on torsemide and metolazone as outpatient and has been on hold prior to admission.
BNP 1140 upon admission
Monitor strict I/O
Monitor daily weight
Monitor renal function and electrolytes
Follows up with cardiology at [place] as outpatient, Dr. Hernandez
10/19/23 echocardiogram reviewed
Continue guideline-directed medical therapy for heart failure (GDMT)
Fluid restriction
Creatinine 2.1, continue with diuresis. asked nephrology to see their recs today
Heart failure education
Follow up clinical response
# Cellulitis of left lower extremity superimposed on chronic lymphedema
not resolved, but appears to be responding to IV abx
-Vancomycin/Zosyn change to IV cefazolin 10/20 since it will cover strep cellulitis and also will be less nephrotoxic. change to PO keflex to finish course
- ultrasound of the left lower extremity done 10/21, results negative for DVT.
-Wound care consulted
-Compression stockings to control edema/lymphedema
-PT OT feels no skilled PT or OT needed
# Acute kidney injury felt to be related to cardiorenal syndrome. There might be an element of CKD as well
-Creatinine 2.1 today
-Continue to avoid nephrotoxic
-Continue to monitor renal function
-Ultrasound of the kidneys reviewed and no obstruction or acute significant abnormalities except for cysts that can be follow-up as outpatient and no mass.
-Cardiology and nephrology following
#Hypokalemia
monitor
Restarted back his oral standing doses of potassium and monitor closely
Magnesium levels 2.5 last time and remains on replacement
#Hyponatremia
Likely hypervolemic hyponatremia
Continue to monitor sodium
#Anemia
No signs of active bleeding
Monitor hb as needed
#Persistent atrial fibrillation
-Continue anticoagulant, Xarelto
-Continue rate control, atenolol
-History of PVI and unsuccessful in the past
#Mitral regurgitation/tricuspid regurgitation/aortic regurgitation/pulmonic regurgitation/dilated ascending aorta
Echocardiogram obtained -see results
Status post Ross procedure in the past
#Morbid obesity
Weight loss modification warranted as outpatient
DNR/DNI
DVT prophylaxis�Xarelto
Anticipated Discharge: Within 24 hours
Subjective/Interval History
-
Date of Service: October 26, 2023
denies nausea
Objective Data
-
Labs:
Laboratory Results
10/26/23
06:19
WBC 8.6
Hgb 12.4 L
Hct 36.5 L
Plt Count 243
Sodium 134 L
Potassium 3.3 L
Chloride 86 L
Carbon Dioxide 36 H
BUN 70 H
Creatinine 2.1 H
Glucose 123 H
Calcium 9.7
Vital Signs:
Vital Signs
Temp Pulse Resp BP Pulse Ox
97.8 F 79 18 134/68 98
10/26/23 08:07 10/26/23 09:17 10/26/23 08:07 10/26/23 09:17 10/26/23 08:51
I&O
10/25/23 10/26/23 10/27/23
06:59 06:59 06:59
Intake Total 1380 / 1380
Output Total 4250 / 4250 1500 / 1500
Balance -2870 / -2870 -1500 / -1500
[2023-10-26] MEDS: KEFLEX 500 MG PO ×2 (12:10→21:42)
--- NOTE | 2023-10-26 12:47 | W.PN.NEPH.PH ---
Today's Communication / Plan
-
reduce lasix
Assessment/Plan
-
Impression:
CKD (1.8)
Renal cysts
Cellulitis of left lower extremity
Chronic lymphedema
Atrial fibrillation
Aortic stenosis
Severe TR history of Ross procedure
Suspected congestive heart failure
Plan:
follow BMP
reduce lasix to daily
reduce metolazone to MWF
can likely switch back to torsemide tomorrow
-
-
Date of Service: October 26, 2023
CC / HPI / ROS
-
Chief Complaint:
Chronic kidney disease
History of Present Illness:
Creatinine up to 2.1
bicarb 36
K low 3.3
Hemodynamically stable
Review of Systems:
Grossly nonoliguric
Weights down mildly
Profound edema with left lower extremity cellulitis
Labs
-
Labs:
WBC 8.6 10^3/uL (4.8-10.8) 10/26/23 06:19
RBC 4.16 10^6/uL (4.70-6.10) L 10/26/23 06:19
Hgb 12.4 g/dL (13.0-18.0) L 10/26/23 06:19
Hct 36.5 % (39.0-52.0) L 10/26/23 06:19
Plt Count 243 10^3/uL (130-400) 10/26/23 06:19
Sodium 134 mmol/L (135-145) L 10/26/23 06:19
Potassium 3.3 mmol/L (3.5-5.1) L 10/26/23 06:19
Chloride 86 mmol/L (98-107) L 10/26/23 06:19
Carbon Dioxide 36 mmol/L (22-30) H 10/26/23 06:19
BUN 70 mg/dl (9-20) H 10/26/23 06:19
Creatinine 2.1 mg/dL (0.7-1.3) H 10/26/23 06:19
eGFR 33.45 10/26/23 06:19
Glucose 123 mg/dl (70-99) H 10/26/23 06:19
Calcium 9.7 mg/dl (8.4-10.2) 10/26/23 06:19
Kkp-H-Sgaqlzkroyu Pept 1140 pg/ml 10/19/23 17:27
Albumin 4.0 g/dl (3.5-5.0) 10/19/23 06:55
Physical Exam
-
Vital Signs:
Vital Signs
Temp Pulse Resp BP Pulse Ox
97.8 F 79 18 134/68 98
10/26/23 08:07 10/26/23 09:17 10/26/23 08:07 10/26/23 09:17 10/26/23 08:51
Cardiovascular:: Regular rate and rhythm
Respiratory:: Bilateral: CTA
Lung Excursion:: Normal
Abdomen:: Nontender and Soft
Bowel Sounds:: Normal
Extremity Edema:: +3: Bilateral:
[2023-10-26 15:06] VITALS: BP 130/67
[2023-10-26] MEDS: ULTRAM 50 MG PO (17:04)
[2023-10-26] MEDS: MAGNESIUM OXIDE 1000 MG PO (17:05)
[2023-10-26] MEDS: XARELTO 15 MG PO (17:05)
[2023-10-26] MEDS: ZYRTEC 20 MG PO (17:05)
[2023-10-26 23:27] VITALS: BP 134/67
[2023-10-27 06:00] VITALS: BMI 36.1
[2023-10-27 07:00] VITALS: BP 112/60
[2023-10-27] MEDS: VITAMIN C 1000 MG PO (08:01)
[2023-10-27] MEDS: TENORMIN 25 MG PO (08:02)
[2023-10-27] MEDS: KEFLEX 500 MG PO ×2 (08:02→19:38)
[2023-10-27] MEDS: KCL 40 MEQ PO ×3 (08:02→19:38)
[2023-10-27] MEDS: LASIX 80 MG IV (08:03)
[2023-10-27] MEDS: VITAMIN D3 (cholecalciferol) 25 MCG PO (08:05)
[2023-10-27 08:18] LABS: % Basophils 0.7 % (0-2); % Eosinophils 2.7 % (0-6); % Immature Granulocytes 0.1 % (0-0.5); % Lymphocytes 22.6 % (20.5-51.1); % Monocytes 12.7 % (1.7-9.3); % Neutrophils 61.2 % (42.2-75.2); Absolute Basophils 0.1 10^3/uL (0-0.2); Absolute Eosinophils 0.2 10^3/uL (0-0.7); Absolute Lymphocytes 1.7 10^3/uL (1.2-3.4); Absolute Monocytes 0.9 10^3/uL (0.1-0.6); Absolute Neutrophils 4.5 10^3/uL (1.4-6.5); Hematocrit 37.4 % (39.0-52.0); Hemoglobin 12.5 g/dL (13.0-18.0); Mean Corp Hgb Conc. 33.4 g/dL (33.0-37.0); Mean Corpuscular Hgb 29.5 pg (27.0-31.0); Mean Corpuscular Volume 88.2 fL (80.0-94.0); Mean Platelet Volume 11.3 fL (7.4-10.4); Nucleated Red Blood Cells % 0 % (-); Platelet Count 223 10^3/uL (130-400); Red Blood Cell Count 4.24 10^6/uL (4.70-6.10); Red Cell Dist. Width 13.6 % (11.5-14.5); White Blood Cell Count 7.4 10^3/uL (4.8-10.8)
[2023-10-27 09:00] LABS: Blood Urea Nitrogen 71 mg/dl (9-20); Calcium 9.6 mg/dl (8.4-10.2); Carbon Dioxide 34 mmol/L (22-30); Chloride 89 mmol/L (98-107); Estimated Creatinine Clearance 48 ml/min; Glucose 110 mg/dl (70-99); Potassium 3.5 mmol/L (3.5-5.1); Sodium 135 mmol/L (135-145); eGFR 40.24
--- NOTE | 2023-10-27 09:57 | W.PN.CD ---
Addendum entered and electronically signed by Jenny Baxter MD 10/27/23 15:10:
I saw and examined the patient.
The CONDUIT HELPER's note was reviewed and I agree with the note.
Comment: He is feeling better, being transitioned to po torsemide from iv lasix. legs with wrapping and 1-2+ pitting, rrr s1/s2 systolic murmur in all areas. Agree with ongoing diureis, d/c planning.
Original Note:
Today's Communication / Plan
-
Continue diuresis
Impression / Plan
-
BACKGROUND: 68M with Ross procedure (age 39), HFpEF, persistent atrial fibrillation (prior ablation on Xarelto), chronic lymphedema, chronic wounds/lymphedema, and chronic kidney disease who presented to the emergency department [facility] referral [facility] with left lower extremity cellulitis. He was found to have an JEANIE and be in acute on chronic heart failure.
Maternal Child Nurse: Dr. Hernandez ([facility])
HFpEF, acute on chronic
-Continue Lasix 80 mg IV daily and metolazone 2.5 mg daily; diuresis per Nephrology
-Defer SGLT2i given JEANIE
-Continue to trend daily weight, I/O, and BMP with diuresis.
Severe tricuspid regurgitation (likely chronic):
-Continue diuretics as above.
Mild to moderate, eccentric mitral regurgitation
-Continue to monitor over time with Primary Maternal Child Nurse (Dr. Hernandez)
JEANIE on CKD
-Nephrology following.
Status post Ross procedure
-Peak/mean gradients across the pulmonic valve are 18/7 mmHg. Mild pulmonic regurgitation.
-Peak/mean gradients across the aortic valve are 14/7 mmHg. Mild to moderate aortic regurgitation.
Persistent atrial fibrillation
-Prior PVI was unsuccessful
-HRs remain controlled.
-Oral Anticoagulation: Rivaroxaban 15 mg daily (dose adjusted due to renal function)
-[id number]: Score at least 2 (Heart failure, age 65-74)
Left lower extremity cellulitis superimposed on chronic lymphedema, follows with wound care center, wrapped
Dilated ascending aorta, 4.2 cm
Obesity, BMI 36.1, he would benefit from weight loss
Subjective:
Dyspnea with significant improvement.
Physical Exam
Vital Signs/Labs
Vital Signs
Temp Pulse Resp BP Pulse Ox
98.7 F 84 14 112/60 100
10/27/23 07:00 10/27/23 08:02 10/27/23 07:00 10/27/23 08:02 10/27/23 08:15
10/26/23 10/27/23 10/28/23
06:59 06:59 06:59
Actual Weight 110.932 kg 110.733 kg
10/27/23 05:25
10/27/23 05:25
Magnesium 2.5 mg/dl (1.6-2.3) H 10/21/23 05:24
10/18/23 10/19/23
15:56 17:27
Ppo-P-Fugsekpkkkn Pept 819 1140
Physical Exam
Constitutional: No acute distress and Comfortable
EENT: Anicteric and Moist mucous membranes
Cardiovascular: Rhythm & rate is regular, Pedal edema present, Systolic murmur present (II/) and S1S2 is normal
Respiratory: Respiratory effort normal and Lungs clear to auscul.
GI: Soft, Distention absent, Flat, Non tender and Normal bowel sounds
Neuro/Psych: AO x 3
Other: Skin (warm and dry)
Data Reviewed
-
Date of Service: October 27, 2023
Labs: Labs Reviewed by me
--- NOTE | 2023-10-27 10:33 | W.PN.HOSP.TC ---
Today's Communication/Plan
-
see A/P
Assessment / Plan
Assessment / Plan
Physical exam:
HEENT: Normocephalic, Atraumatic and Moist Mucous Membranes
Respiratory: clear
Cardiac: Regular Rhythm and S1/S2, systolic murmur
GI: Soft, Nontender and Nondistended, obese
Musculoskeletal: Bilateral edema. Left lower extremity wrapped up with erythema and serous discharge. Right lower extremity also has some erythema but less pronounced.
Neuro: Awake, Alert and Oriented, no gross neurological deficits.
Psych: Calm
Echocardiogram:
-LV ejection fraction is 70-75%, by visual assessment. Flattened septum in
systole and diastole consistent with RV pressure and volume overload. Wall
motion is consistent with post-operative state.
-Enlarged right ventricular size. Normal right ventricular systolic function.
-Mild to moderate, eccentric mitral regurgitation.
-Status-post Ross procedure; peak/mean gradients across the aortic valve are
14/7 mmHg. Mild to moderate aortic regurgitation.
-Severe tricuspid regurgitation. Estimated pulmonary artery pressure of 55-60
mmHg.
-Status-post Ross procedure; peak/mean gradients across the pulmonic valve are
18/7 mmHg. Mild pulmonic regurgitation.
-Ascending aorta is mildly dilated, measuring 4.2 cm.
-The IVC is dilated and does not collapse.
No prior study available for comparison.
A/P:
# Acute on chronic diastolic congestive heart failure, likely valvulopathy related
He is on torsemide and metolazone as outpatient and has been on hold prior to admission.
Continue with diuresis with Lasix now 80 mg daily and metolazone 2.5 mg MWF
Monitor strict I/O , Monitor daily weight
Monitor renal function and electrolytes
Follows up with cardiology at [facility] as outpatient, Dr. Hernandez
10/19/23 echocardiogram reviewed
Continue guideline-directed medical therapy for heart failure (GDMT)
Fluid restriction
Heart failure education
Follow up clinical response
# Cellulitis of left lower extremity superimposed on chronic lymphedema
Vancomycin/Zosyn change to IV cefazolin 10/20 since it will cover strep cellulitis and also will be less nephrotoxic. Changed to PO keflex to finish course
Ultrasound of the left lower extremity done 10/21, results negative for DVT.
Wound care consulted
Compression stockings to control edema/lymphedema
PT OT feels no skilled PT or OT needed
# Acute kidney injury felt to be related to cardiorenal syndrome. There might be an element of CKD as well
Creatinine 1.8 today from 2.1
Continue to avoid nephrotoxic
Continue to monitor renal function
Ultrasound of the kidneys reviewed and no obstruction or acute significant abnormalities except for cysts that can be follow-up as outpatient and no mass.
Cardiology and nephrology following
# Hypokalemia
monitor
Restarted back his oral standing doses of potassium and monitor closely
Magnesium levels 2.5 last time and remains on replacement
# Hyponatremia
Likely hypervolemic hyponatremia
Continue to monitor sodium
# Anemia
No signs of active bleeding
Monitor hb as needed
# Persistent atrial fibrillation
Continue anticoagulant, Xarelto
Continue rate control, atenolol
History of PVI and unsuccessful in the past
# Mitral regurgitation/tricuspid regurgitation/aortic regurgitation/pulmonic regurgitation/dilated ascending aorta
Echocardiogram obtained -see results
Status post Ross procedure in the past
# Morbid obesity
Weight loss modification warranted as outpatient
DNR/DNI
DVT prophylaxis�Xarelto
Anticipated Discharge: 24 - 48 hours
Subjective/Interval History
-
Date of Service: October 27, 2023
Objective Data
-
Labs:
Laboratory Results
10/27/23
05:25
WBC 7.4
Hgb 12.5 L
Hct 37.4 L
Plt Count 223
Sodium 135
Potassium 3.5
Chloride 89 L
Carbon Dioxide 34 H
BUN 71 H
Creatinine 1.8 H
Glucose 110 H
Calcium 9.6
Vital Signs:
Vital Signs
Temp Pulse Resp BP Pulse Ox
37.1 C 84 14 112/60 100
10/27/23 07:00 10/27/23 08:02 10/27/23 07:00 10/27/23 08:02 10/27/23 08:15
I&O
10/26/23 10/27/23 10/28/23
06:59 06:59 06:59
Intake Total 1380 / 1380
Output Total 1500 / 1500 2400 / 2400
Balance -1500 / -1500 -1020 / -1020
Review of Systems
-
All other systems: Reviewed and negative
Data Reviewed
-
Labs: Labs Reviewed by me
--- NOTE | 2023-10-27 11:22 | W.PN.NEPH.PH ---
Today's Communication / Plan
-
po torsemide
Assessment/Plan
-
Impression:
CKD (1.8)
Renal cysts
Cellulitis of left lower extremity
Chronic lymphedema
Atrial fibrillation
Aortic stenosis
Severe TR history of Ross procedure
Suspected congestive heart failure
Plan:
follow BMP
metolazone MWF
switch to po torsemide 40mg daily
-
-
Date of Service: October 27, 2023
CC / HPI / ROS
-
Chief Complaint:
Chronic kidney disease
History of Present Illness:
Creatinine down to 1.8
bicarb 34
K better at 3.5
Hemodynamically stable
Review of Systems:
Grossly nonoliguric
Weights down mildly
Profound edema with left lower extremity cellulitis
Labs
-
Labs:
WBC 7.4 10^3/uL (4.8-10.8) 10/27/23 05:25
RBC 4.24 10^6/uL (4.70-6.10) L 10/27/23 05:25
Hgb 12.5 g/dL (13.0-18.0) L 10/27/23 05:25
Hct 37.4 % (39.0-52.0) L 10/27/23 05:25
Plt Count 223 10^3/uL (130-400) 10/27/23 05:25
Sodium 135 mmol/L (135-145) 10/27/23 05:25
Potassium 3.5 mmol/L (3.5-5.1) 10/27/23 05:25
Chloride 89 mmol/L (98-107) L 10/27/23 05:25
Carbon Dioxide 34 mmol/L (22-30) H 10/27/23 05:25
BUN 71 mg/dl (9-20) H 10/27/23 05:25
Creatinine 1.8 mg/dL (0.7-1.3) H 10/27/23 05:25
eGFR 40.24 10/27/23 05:25
Glucose 110 mg/dl (70-99) H 10/27/23 05:25
Calcium 9.6 mg/dl (8.4-10.2) 10/27/23 05:25
Ilu-Y-Jvpvqzhilxg Pept 1140 pg/ml 10/19/23 17:27
Albumin 4.0 g/dl (3.5-5.0) 10/19/23 06:55
Physical Exam
-
Vital Signs:
Vital Signs
Temp Pulse Resp BP Pulse Ox
98.7 F 84 14 112/60 100
10/27/23 07:00 10/27/23 08:02 10/27/23 07:00 10/27/23 08:02 10/27/23 08:15
Cardiovascular:: Regular rate and rhythm
Respiratory:: Bilateral: Coarse
Lung Excursion:: Normal
Abdomen:: Nontender and Soft
Bowel Sounds:: Normal
Extremity Edema:: +3: Bilateral:
[2023-10-27 15:00] VITALS: BP 108/52
[2023-10-27] MEDS: MAGNESIUM OXIDE 1000 MG PO (17:51)
[2023-10-27] MEDS: ZYRTEC 20 MG PO (17:51)
[2023-10-27] MEDS: XARELTO 15 MG PO (17:51)
[2023-10-27] MEDS: ULTRAM 50 MG PO (17:51)
[2023-10-27 23:26] VITALS: BP 125/62
[2023-10-28 06:00] VITALS: BMI 36.3
[2023-10-28 06:52] LABS: Hemoglobin 11.7 g/dL (13.0-18.0); Mean Corp Hgb Conc. 34.4 g/dL (33.0-37.0); Mean Corpuscular Volume 87.2 fL (80.0-94.0); Mean Platelet Volume 11.1 fL (7.4-10.4); Platelet Count 217 10^3/uL (130-400); Red Cell Dist. Width 13.7 % (11.5-14.5); White Blood Cell Count 8.1 10^3/uL (4.8-10.8)
[2023-10-28 07:00] VITALS: BP 126/62
[2023-10-28 07:09] LABS: Blood Urea Nitrogen 67 mg/dl (9-20); Carbon Dioxide 35 mmol/L (22-30); Estimated Creatinine Clearance 50 ml/min; Magnesium 2.4 mg/dl (1.6-2.3); Potassium 3.8 mmol/L (3.5-5.1)
[2023-10-28 07:19] LABS: Calcium 9.6 mg/dl (8.4-10.2); Chloride 90 mmol/L (98-107); Glucose 123 mg/dl (70-99); Sodium 133 mmol/L (135-145)
[2023-10-28 08:00] VITALS: BP 126/62
[2023-10-28] MEDS: TENORMIN 25 MG PO (08:14)
[2023-10-28] MEDS: DEMADEX 40 MG PO (08:16)
[2023-10-28] MEDS: KEFLEX 500 MG PO (08:16)
[2023-10-28] MEDS: VITAMIN C 1000 MG PO (08:16)
[2023-10-28] MEDS: VITAMIN D3 (cholecalciferol) 25 MCG PO (08:16)
[2023-10-28] MEDS: KCL 40 MEQ PO (08:16)
--- NOTE | 2023-10-28 08:23 | W.PN.HOSP.TC ---
Addendum entered and electronically signed by Elsa Linda MD 10/28/23 11:43:
total DC time 36 min
Original Note:
Today's Communication/Plan
-
see A/P
Assessment / Plan
Assessment / Plan
Echocardiogram:
-LV ejection fraction is 70-75%, by visual assessment. Flattened septum in
systole and diastole consistent with RV pressure and volume overload. Wall
motion is consistent with post-operative state.
-Enlarged right ventricular size. Normal right ventricular systolic function.
-Mild to moderate, eccentric mitral regurgitation.
-Status-post Ross procedure; peak/mean gradients across the aortic valve are
14/7 mmHg. Mild to moderate aortic regurgitation.
-Severe tricuspid regurgitation. Estimated pulmonary artery pressure of 55-60
mmHg.
-Status-post Ross procedure; peak/mean gradients across the pulmonic valve are
18/7 mmHg. Mild pulmonic regurgitation.
-Ascending aorta is mildly dilated, measuring 4.2 cm.
-The IVC is dilated and does not collapse.
No prior study available for comparison.
A/P:
# Acute on chronic diastolic congestive heart failure, likely valvulopathy related
He is on torsemide and metolazone as outpatient and has been on hold prior to admission.
s/p IV Lasix, now on PO torsemide 40 mg daily
Cont metolazone 2.5 mg MWF
Monitor strict I/O , Monitor daily weight
Monitor renal function and electrolytes
Follows up with cardiology at [facility] as outpatient, Dr. Hernandez
10/19/23 echocardiogram reviewed
Continue guideline-directed medical therapy for heart failure (GDMT)
Fluid restriction
Heart failure education
Follow up clinical response
# Cellulitis of left lower extremity superimposed on chronic lymphedema
Vancomycin/Zosyn change to IV cefazolin 10/20 since it will cover strep cellulitis and also will be less nephrotoxic. Changed to PO keflex to finish course
Ultrasound of the left lower extremity done 10/21, results negative for DVT.
Wound care consulted
Compression stockings to control edema/lymphedema
PT OT feels no skilled PT or OT needed
# Acute kidney injury felt to be related to cardiorenal syndrome. There might be an element of CKD as well
Creatinine 1.7 today from 2.1 (peak)
Continue to avoid nephrotoxic
Continue to monitor renal function
Ultrasound of the kidneys reviewed and no obstruction or acute significant abnormalities except for cysts that can be follow-up as outpatient and no mass.
Cardiology and nephrology following
# Hypokalemia
monitor
Restarted back his oral standing doses of potassium and monitor closely
Magnesium levels 2.5 last time and remains on replacement
# Hyponatremia
Likely hypervolemic hyponatremia
Continue to monitor sodium
# Anemia
No signs of active bleeding
Monitor hb as needed
# Persistent atrial fibrillation
Continue anticoagulant, Xarelto
Continue rate control, atenolol
History of PVI and unsuccessful in the past
# Mitral regurgitation/tricuspid regurgitation/aortic regurgitation/pulmonic regurgitation/dilated ascending aorta
Echocardiogram obtained -see results
Status post Ross procedure in the past
# Morbid obesity
Weight loss modification warranted as outpatient
DNR/DNI
DVT prophylaxis�Xarelto
Anticipated Discharge: Today
Subjective/Interval History
-
Date of Service: October 28, 2023
Objective Data
-
Labs:
Laboratory Results
10/28/23
05:47
WBC 8.1
Hgb 11.7 L
Hct 34.0 L
Plt Count 217
Sodium 133 L
Potassium 3.8
Chloride 90 L
Carbon Dioxide 35 H
BUN 67 H
Creatinine 1.7 H
Glucose 123 H
Calcium 9.6
Vital Signs:
Vital Signs
Temp Pulse Resp BP Pulse Ox
36.8 C 74 18 126/62 94
10/28/23 07:00 10/28/23 08:14 10/28/23 07:00 10/28/23 08:14 10/28/23 07:00
I&O
10/27/23 10/28/23 10/29/23
06:59 06:59 06:59
Intake Total 1380 / 1380 480 / 480
Output Total 2400 / 2400 2600 / 2600
Balance -1020 / -1020 -2120 / -2120
Review of Systems
-
All other systems: Reviewed and negative
Physical Exam
-
General: Well Developed, Well Nourished, No Apparent Distress, Comfortable and Obese; Negative Respiratory Distress
HEENT: Normocephalic and Atraumatic
Respiratory: Clear to Auscultation; Negative Wheezes, Rales or Rhonchi
Cardiac: Regular Rhythm and S1/S2
GI: Soft, Nontender and Nondistended
Musculoskeletal: No Clubbing, No Cyanosis and Other (Chronic BL lymphedema )
Neuro: Awake, Alert and Oriented
Psych: Calm and Intact Judgement/Insight
Data Reviewed
-
Labs: Labs Reviewed by me
--- NOTE | 2023-10-28 08:57 | CM ---
beauty shop manager reviewed patient's chart and patient has been cleared for discharge today, plan is to home with [facility].
Plan; Home with Homecare
[facility]
[place] [phone]
--- NOTE | 2023-10-28 11:09 | W.DCSUMMARY ---
Discharge Summary
Discharge Data
Date of Admission: 10/18/23
Date of Discharge: 10/28/23
-
Pending Results: No
Hospital Course
Principal Diagnosis:
Acute on chronic diastolic congestive heart failure, likely valvulopathy related
Cellulitis of left lower extremity superimposed on chronic lymphedema
Acute kidney injury likely related to cardiorenal syndrome, on chronic kidney disease stage III
Chronic Diagnoses:�
Persistent atrial fibrillation now on renally dosed Xarelto and atenolol
History of unsuccessful PVI
Mitral regurgitation/tricuspid regurgitation/aortic regurgitation/pulmonic regurgitation/dilated ascending aorta
Morbid obesity, BMI 36
Consultations:�
Cardiology
Nephrology
Procedures:�
None
Clinical course:�
This is a 68-year-old male, with past medical history as stated above, who presented with acute on chronic left lower extremity edema, pain, and discharge in setting of chronic lymphedema.
Problem 1:
Cellulitis of left lower extremity superimposed on chronic lymphedema.
The patient was initially treated with IV antibiotics vancomycin/Zosyn, which were then changed to IV cefazolin and again to oral Keflex. He was discharged with oral Keflex 500 mg every 6 hours for 3 more days to complete course.
His left lower extremity ultrasound was negative for DVT.
He can continue compression stocking to control his chronic lymphedema, and he has been informed to follow-up closely with wound care following discharge.
Problem 2:
Acute on chronic diastolic congestive heart failure, likely valvulopathy related.
He received IV Lasix while in the hospital, and this was later changed back to oral torsemide 40 mg daily which he can continue going forward.
He can also continue with metolazone 2.5 mg Sunday.
Problem 3:
Acute kidney injury likely related to cardiorenal syndrome, on chronic kidney disease stage III.
His creatinine down trended from 2.1 to 1.7 which is at his baseline.
His kidney ultrasound was negative for obstruction or acute significant abnormalities except for cysts that can be follow-up as outpatient.
As for the rest of his medical problems, they were stable during his hospital stay.
Discharge Plan
-
Patient Disposition: Home (Routine Discharge)
Discharge Diagnosis/Procedures: Acute on chronic diastolic congestive heart failure;
Acute kidney injury felt to be related to cardiorenal syndrome;
Cellulitis of left lower extremity superimposed on chronic lymphedema;
Persistent atrial fibrillation
Condition: Fair
Diet: As tolerated and Restrict fluids to 48 oz
Activity: As tolerated
Driving Restrictions: Not until seen by your Dr
Blood Work: BMP in 1 week with result to PCP
Wound Care: Wound Care Instructions:
Can shower.
R leg: clean with vashe, adaptic, alginate and silicone foam daily and prn drainage.
Left Lower Extremity- Clean open areas and periwound with Vashe moistened gauze for 5 minutes. Apply barrier ointment around wound. Apply alginate on open areas and cover with ABD and wrap with jamel. Perform daily and PRN if loose or soiled.
Compression stocking to R leg daily, Andrew wrap to L leg daily knee high remove at hs ( Can use with Lymphedema pumps)
Follow up with lymphedema clinic
leg elevation when sitting
Follow up at wound care center call for an appointment.
Referrals:
Brandon Colon MD [Family Provider] - in less than 1 week
Additional Discharge Medication Instructions: Continue torsemide 40 mg daily AND metolazone 2.5 mg MWF
Your Xarelto was decreased from 20 to 15 mg daily
Continue Keflex for 3 more days
Prescriptions:
New
cephalexin 500 mg Capsule
500 mg PO Q6H 3 Days Qty: 12 0RF
Xarelto 15 mg Tablet
15 mg PO QPM Qty: 30 0RF
Continued
ascorbic acid (vitamin C) [Vitamin C] 1,000 mg Tablet
1,000 mg PO DAILY
torsemide 20 mg Tablet
40 mg PO DAILY
cetirizine [Zyrtec] 10 mg Tablet
20 mg PO QPM
atenolol 25 mg Tablet
25 mg PO DAILY
potassium chloride 20 mEq Tablet,Er Particles/Crystals
40 meq PO BID
magnesium oxide 500 mg magnesium Tablet
1,000 mg PO QPM
cholecalciferol (vitamin D3) [Vitamin D3] 25 mcg (1,000 unit) Tablet
25 mcg PO DAILY
Changed
metolazone 2.5 mg Tablet
2.5 mg PO MOWEFR Qty: 0 0RF
Discontinued
Xarelto 20 mg Tablet
20 mg PO QPM
Discharge Orders:
Discharge Patient (As Directed); Ordered 10/28/23
Ordered By: Elsa Linda
Discharge Date and Time
Discharge Date/Time: 10/28/23 10:00
Print Language: IRISH
== END 2023-10-28 10:00 | disposition home health service (06) | DRG 602 ==
LOC: 4 EAST ACU 17:32
PROVIDERS: Hospitalist; Internal Medicine; Physician Assistant Medical; ADMITTING PHYSICIAN Hospitalist; ATTENDING PHYSICIAN Internal Medicine; CONSULT PHYSICIAN Internal Medicine; CONSULT PHYSICIAN Specialist; EMERGENCY PHYSICIAN Student in an Organized Health Care Education/Training Program; FAMILY PHYSICIAN Family Medicine
DX: L03.116 Cellulitis of left lower limb (principal); I50.33 Acute on chronic diastolic (congestive) heart failure; N17.9 Acute kidney failure, unspecified; I48.19 Other persistent atrial fibrillation; I13.0 Hypertensive heart and chronic kidney disease with heart failure and stage 1 through stage 4 chronic kidney disease, or unspecified chronic kidney disease; E66.01 Morbid (severe) obesity due to excess calories; Z68.36 Body mass index [BMI] 36.0-36.9, adult; I08.3 Combined rheumatic disorders of mitral, aortic and tricuspid valves; N18.30 Chronic kidney disease, stage 3 unspecified; I77.810 Thoracic aortic ectasia; I89.0 Lymphedema, not elsewhere classified; N28.1 Cyst of kidney, acquired; T50.2X5A Adverse effect of carbonic-anhydrase inhibitors, benzothiadiazides and other diuretics, initial encounter; Z66 Do not resuscitate; Z79.01 Long term (current) use of anticoagulants; Z79.899 Other long term (current) drug therapy; Z88.0 Allergy status to penicillin
CPT/HCPCS: 76770; 80048; 80053; 80202; 81003; 82570; 83036; 83735; 83880; 84156; 85025; 85027; 85652; 86063; 86140; 93005; 93306; 93971; 96365; 96366; 97162; 99285

== ENCOUNTER → 2023-11-01 13:31 | Outpatient (REF) | payer OTHER, SELFPAY | LOC: WOUND 13:31 | PROVIDERS: ATTENDING PHYSICIAN Surgery; FAMILY PHYSICIAN Internal Medicine | DX: I87.313 Chronic venous hypertension (idiopathic) with ulcer of bilateral lower extremity (principal); L97.822 Non-pressure chronic ulcer of other part of left lower leg with fat layer exposed; L97.212 Non-pressure chronic ulcer of right calf with fat layer exposed; L03.116 Cellulitis of left lower limb; I87.2 Venous insufficiency (chronic) (peripheral); I89.0 Lymphedema, not elsewhere classified; I48.19 Other persistent atrial fibrillation; N18.31 Chronic kidney disease, stage 3a; I73.9 Peripheral vascular disease, unspecified; Z79.01 Long term (current) use of anticoagulants | CPT/HCPCS: 99213 ==

== ENCOUNTER → 2023-11-07 10:41 | Outpatient (REF) | payer MEDICARE, SELFPAY ==
[2023-11-07 12:37] LABS: Blood Urea Nitrogen 43 mg/dl (9-20); Calcium 9.6 mg/dl (8.4-10.2); Carbon Dioxide 36 mmol/L (22-30); Chloride 91 mmol/L (98-107); Glucose 114 mg/dl (70-99); Potassium 3.7 mmol/L (3.5-5.1); Sodium 137 mmol/L (135-145); eGFR 35.46
== END ==
LOC: RAD 10:41
PROVIDERS: ATTENDING PHYSICIAN Internal Medicine; FAMILY PHYSICIAN Family Medicine; REFERRING PHYSICIAN Surgery
DX: I87.312 Chronic venous hypertension (idiopathic) with ulcer of left lower extremity (principal); I87.2 Venous insufficiency (chronic) (peripheral); I89.0 Lymphedema, not elsewhere classified
CPT/HCPCS: 36415; 80048; 93971

== ENCOUNTER → 2023-11-08 13:22 | Outpatient (REF) | payer MEDICARE, SELFPAY | LOC: WOUND 13:22 | PROVIDERS: ATTENDING PHYSICIAN Surgery; FAMILY PHYSICIAN Internal Medicine | DX: I87.313 Chronic venous hypertension (idiopathic) with ulcer of bilateral lower extremity (principal); L97.822 Non-pressure chronic ulcer of other part of left lower leg with fat layer exposed; L97.212 Non-pressure chronic ulcer of right calf with fat layer exposed; L03.116 Cellulitis of left lower limb; I87.2 Venous insufficiency (chronic) (peripheral); I89.0 Lymphedema, not elsewhere classified; I48.19 Other persistent atrial fibrillation; N18.31 Chronic kidney disease, stage 3a; I73.9 Peripheral vascular disease, unspecified; Z79.01 Long term (current) use of anticoagulants | CPT/HCPCS: 99213 ==

== ENCOUNTER → 2023-11-12 13:44 | Outpatient (REF) | payer MEDICARE, SELFPAY | LOC: RAD 13:44 | PROVIDERS: ATTENDING PHYSICIAN Surgery; FAMILY PHYSICIAN Internal Medicine | DX: I87.312 Chronic venous hypertension (idiopathic) with ulcer of left lower extremity (principal); I73.9 Peripheral vascular disease, unspecified | CPT/HCPCS: 93922; 93925 ==

== ENCOUNTER → 2023-11-15 09:04 | Outpatient (REF) | payer MEDICARE, SELFPAY | LOC: WOUND 09:04 | PROVIDERS: ATTENDING PHYSICIAN Surgery; FAMILY PHYSICIAN Family Medicine | DX: I87.313 Chronic venous hypertension (idiopathic) with ulcer of bilateral lower extremity (principal); L97.822 Non-pressure chronic ulcer of other part of left lower leg with fat layer exposed; L97.212 Non-pressure chronic ulcer of right calf with fat layer exposed; L03.116 Cellulitis of left lower limb; I87.2 Venous insufficiency (chronic) (peripheral); I89.0 Lymphedema, not elsewhere classified; I48.19 Other persistent atrial fibrillation; N18.31 Chronic kidney disease, stage 3a; I73.9 Peripheral vascular disease, unspecified; Z79.01 Long term (current) use of anticoagulants | CPT/HCPCS: 99213 ==

== ENCOUNTER → 2023-11-22 13:32 | Outpatient (REF) | payer MEDICARE, SELFPAY | LOC: WOUND 13:32 | PROVIDERS: ATTENDING PHYSICIAN Surgery; FAMILY PHYSICIAN Family Medicine | DX: I87.313 Chronic venous hypertension (idiopathic) with ulcer of bilateral lower extremity (principal); L97.822 Non-pressure chronic ulcer of other part of left lower leg with fat layer exposed; L97.212 Non-pressure chronic ulcer of right calf with fat layer exposed; L03.116 Cellulitis of left lower limb; I87.2 Venous insufficiency (chronic) (peripheral); I89.0 Lymphedema, not elsewhere classified; I48.19 Other persistent atrial fibrillation; N18.31 Chronic kidney disease, stage 3a; I73.9 Peripheral vascular disease, unspecified; Z79.01 Long term (current) use of anticoagulants | CPT/HCPCS: 29581; 99213 ==

== ENCOUNTER → 2023-11-26 11:00 | Outpatient (REF) | payer MEDICARE, SELFPAY | LOC: WOUND 11:00 | PROVIDERS: ATTENDING PHYSICIAN Surgery; FAMILY PHYSICIAN Internal Medicine | DX: I87.313 Chronic venous hypertension (idiopathic) with ulcer of bilateral lower extremity (principal); L97.822 Non-pressure chronic ulcer of other part of left lower leg with fat layer exposed; L97.212 Non-pressure chronic ulcer of right calf with fat layer exposed; L03.116 Cellulitis of left lower limb; I87.2 Venous insufficiency (chronic) (peripheral); I89.0 Lymphedema, not elsewhere classified; I48.19 Other persistent atrial fibrillation; Z79.01 Long term (current) use of anticoagulants; N18.31 Chronic kidney disease, stage 3a; I73.9 Peripheral vascular disease, unspecified | CPT/HCPCS: 29580 ==

== ENCOUNTER → 2023-11-30 12:02 | Outpatient (REF) | payer MEDICARE, SELFPAY | LOC: WOUND 12:02 | PROVIDERS: ATTENDING PHYSICIAN Surgery; FAMILY PHYSICIAN Family Medicine | DX: I87.313 Chronic venous hypertension (idiopathic) with ulcer of bilateral lower extremity (principal); L97.822 Non-pressure chronic ulcer of other part of left lower leg with fat layer exposed; L97.212 Non-pressure chronic ulcer of right calf with fat layer exposed; L03.116 Cellulitis of left lower limb; I87.2 Venous insufficiency (chronic) (peripheral); I89.0 Lymphedema, not elsewhere classified; I48.19 Other persistent atrial fibrillation; N18.31 Chronic kidney disease, stage 3a; I73.9 Peripheral vascular disease, unspecified; Z79.01 Long term (current) use of anticoagulants | CPT/HCPCS: 29581; 99213 ==

== ENCOUNTER → 2023-12-07 07:51 | Outpatient (REF) | payer MEDICARE, SELFPAY | LOC: WOUND 07:51 | PROVIDERS: ATTENDING PHYSICIAN Surgery; FAMILY PHYSICIAN Family Medicine | DX: I87.313 Chronic venous hypertension (idiopathic) with ulcer of bilateral lower extremity (principal); L97.822 Non-pressure chronic ulcer of other part of left lower leg with fat layer exposed; L97.212 Non-pressure chronic ulcer of right calf with fat layer exposed; L03.116 Cellulitis of left lower limb; I87.2 Venous insufficiency (chronic) (peripheral); I89.0 Lymphedema, not elsewhere classified; I48.19 Other persistent atrial fibrillation; N18.31 Chronic kidney disease, stage 3a; I73.9 Peripheral vascular disease, unspecified; Z79.01 Long term (current) use of anticoagulants | CPT/HCPCS: 29581; 99213 ==

== ENCOUNTER → 2023-12-12 12:52 | Outpatient (REF) | payer MEDICARE, SELFPAY | LOC: WOUND 12:52 | PROVIDERS: ATTENDING PHYSICIAN Surgery; FAMILY PHYSICIAN Family Medicine | DX: I87.313 Chronic venous hypertension (idiopathic) with ulcer of bilateral lower extremity (principal); L97.822 Non-pressure chronic ulcer of other part of left lower leg with fat layer exposed; L97.212 Non-pressure chronic ulcer of right calf with fat layer exposed; L03.116 Cellulitis of left lower limb; I87.2 Venous insufficiency (chronic) (peripheral); I89.0 Lymphedema, not elsewhere classified; I48.19 Other persistent atrial fibrillation; N18.31 Chronic kidney disease, stage 3a; I73.9 Peripheral vascular disease, unspecified; Z79.01 Long term (current) use of anticoagulants | CPT/HCPCS: 29581 ==

== ENCOUNTER 2023-12-17 08:45 | Outpatient (RCR) | payer MEDICARE, SELFPAY | END 2023-12-17 23:59 | disposition home or self-care (01) | LOC: RPT 08:45 | PROVIDERS: ATTENDING PHYSICIAN Surgery; FAMILY PHYSICIAN Internal Medicine | DX: I89.0 Lymphedema, not elsewhere classified (principal); Z73.6 Limitation of activities due to disability | CPT/HCPCS: 97530 ==

== ENCOUNTER → 2023-12-19 13:36 | Outpatient (REF) | payer MEDICARE, SELFPAY | LOC: WOUND 13:36 | PROVIDERS: ATTENDING PHYSICIAN Surgery; FAMILY PHYSICIAN Family Medicine | DX: I87.313 Chronic venous hypertension (idiopathic) with ulcer of bilateral lower extremity (principal); L97.822 Non-pressure chronic ulcer of other part of left lower leg with fat layer exposed; L97.212 Non-pressure chronic ulcer of right calf with fat layer exposed; L03.116 Cellulitis of left lower limb; I87.2 Venous insufficiency (chronic) (peripheral); I89.0 Lymphedema, not elsewhere classified; I48.19 Other persistent atrial fibrillation; N18.31 Chronic kidney disease, stage 3a; I73.9 Peripheral vascular disease, unspecified; Z79.01 Long term (current) use of anticoagulants | CPT/HCPCS: 99212 ==